=== PATIENT | male | born 1980 | race Caucasian/White ===

== ENCOUNTER 2017-03-17 07:18 | Emergency (ER) | payer BC ==
[2017-03-17] MEDS ORDERED: Sodium Chloride 0.9% 2.5 ML Syringe FLUSH PRN (07:22)
[2017-03-17] MEDS ORDERED: Aspirin 81 MG Tab.Chew PO ONE (07:22)
[2017-03-17] MEDS ORDERED: Sodium Chloride 0.9% 10 ML Syringe FLUSH PRN (07:22)
[2017-03-17] MEDS ORDERED: Sodium Chloride 0.9% 1,000 ML IV SCH (07:30)
--- NOTE | 2017-03-17 07:37 | EDM.PDOC ---
ED HPI GENERAL MEDICAL PROBLEM - General Stated Complaint: PALPITATIONS, STIFFNESS IN CHEST Time Seen by Provider: 03/17/17 07:19 Source of Information: Reports: Patient History Limitations: Reports: No Limitations - History of Present Illness INITIAL COMMENTS - FREE TEXT/NARRATIVE: HISTORY AND PHYSICAL: History of present illness: [36-year-old male with a past medical history of episode of atrial fibrillation years ago. At that time patient was cardioverted electrically and placed on atenolol. He has never had a recurrence of atrial fibrillation since that time. Patient has no known heart disease. He presents today complaining of "feeling weird. "Patient states he does not have chest pain. He does occasionally have palpitations including yesterday. Is not short of breath specifically has no exertional chest pain denies productive cough or fever no pleuritic chest pain. Patient states he's been very stressed out at work sometimes working 22 hour days at a strenuous job. Is also not sleeping well and drank alcohol before going to bed last night. Patient feels fatigued he did not get to bed until late and then didn't feel well on his way to work again this morning, so he came to the emergency department for evaluation. Patient states he does have a history of anxiety but he does not take any medication for this. He has never had a stress tach or cardiac catheterization. Blood pressure is elevated on arrival however he has no headache visual changes speech focal neurologic complaint chest pain shortness of breath, or any specific complaints Review of systems: As per history of present illness and below otherwise all systems reviewed and negative. Past medical history: As per history of present illness and as reviewed below otherwise noncontributory. Surgical history: As per history of present illness and as reviewed below otherwise noncontributory. Social history: No reported history of drug or alcohol abuse. Family history: As per history of present illness and as reviewed below otherwise noncontributory. Physical exam: HEENT: Atraumatic, normocephalic, pupils reactive, negative for conjunctival pallor or scleral icterus, mucous membranes moist, throat clear, neck supple, nontender, trachea midline. Lungs: Clear to auscultation, breath sounds equal bilaterally, chest nontender. Heart: S1S2, regular, negative for clicks, rubs, or JVD. Abdomen: Soft, nondistended, nontender. Negative for masses or hepatosplenomegaly. Negative for costovertebral tenderness. Pelvis: Stable nontender. Genitourinary: Deferred. Rectal: Deferred. Extremities: Atraumatic, negative for cords or calf pain. Neurovascular unremarkable. Neuro: Awake, alert, oriented. Cranial nerves II through XII unremarkable. Cerebellum unremarkable. Motor and sensory unremarkable throughout. Exam nonfocal. Diagnostics: [EKG with sinus arrhythmia at 62 normal axis no STEMI Chest x-ray with mild increased lung markings adjacent to right mediastinum right upper lobe area. Unclear if artifactual. Remainder of exam benign. CTA of the chest unremarkable with common that corresponding area to chest x- ray finding showed nothing pathologic and is deemed artifactual. Negative for PE Therapeutics: [] Impression: [Palpitations Fatigue Anxiety Pleurisy] Plan: [Signs and symptoms consistent with multifactorial etiology for patient's vague complaint of fatigue. He clearly has a contributory anxiety component as well as being overworked fatigued and having used alcohol last night even though he describes that it was not excessive . Discussed with patient possibility of paroxysmal of atrial fibrillation associated with his palpitations yesterday however symptoms were very mild with no respiratory symptoms. He's had no exertional pain at any time no evidence of acute coronary syndrome. Patient describes very mild pleurisy however chest x-ray was benign except for possible increased lung markings right upper lung however when evaluated with a CTA of the chest this finding turned out to be artifactual and the CTA results were obliquely negative. Patient initially with blood pressure approximately 180/120s , this improved with clonidine to 132/89 on reevaluation prior to discharge. Patient is well-appearing and asymptomatic on reevaluation. No further workup or treatment is indicated today and patient and significant other agree with outpatient follow-up. Call placed to patients patient carrier Dr. Coleman as a courtesy to discuss antihypertensive therapy and arrange outpatient follow-up. Strict return precautions given Definitive disposition and diagnosis as appropriate pending reevaluation and review of above. - Related Data Allergies Allergy/AdvReac Type Severity Reaction Status Date / Time No Known Allergies Allergy Verified 03/17/17 07:27 Home Meds: Home Meds Aspirin 325 mg PO DAILY 03/23/14 [History] Esomeprazole [NexIUM] 0 mg PO DAILY 03/23/14 [History] Fish Oil/[place]-3 Fatty Acids [Fish Oil] 1 gm PO DAILY 05/07/15 [History] Garlic 1 tab PO DAILY 05/07/15 [History] Multivitamin [Multivitamins] 1 cap PO DAILY 05/07/15 [History] Diltiazem HCl [Diltiazem 24Hr ER] 240 mg PO DAILY 03/17/17 [History] Past Medical History HEENT History: Reports: None Cardiovascular History: Reports: Afib Respiratory History: Reports: None Gastrointestinal History: Reports: None Genitourinary History: Reports: None Neurological History: Reports: None Psychiatric History: Reports: None Endocrine/Metabolic History: Reports: None Dermatologic History: Reports: None - Infectious Disease History Infectious Disease History: Reports: Chicken Pox - Past Surgical History Other Musculoskeletal Surgeries/Procedures:: Carpal tunnel surgery Social & Family History - Family History Family Medical History: Noncontributory - Tobacco Use Smoking Status *Q: Current Every Day Smoker Years of Tobacco use: 20 Packs/Tins Daily: 1 - Caffeine Use Caffeine Use: Reports: None - Alcohol Use Days Per Week of Alcohol Use: 2 Number of Drinks Per Day: 3 Total Drinks Per Week: 6 - Recreational Drug Use Recreational Drug Use: No Drug Use in Last 12 Months: No ED ROS GENERAL - Review of Systems Review Of Systems: See Below (History of present illness) ED EXAM, GENERAL - Physical Exam Exam: See Below (History of present illness) Course - Vital Signs Last Recorded V/S: Last Vital Signs Temp 36.4 C 03/17/17 07:27 Pulse 76 03/17/17 07:27 Resp 18 03/17/17 07:27 BP 192/131 H 03/17/17 07:43 Pulse Ox 97 03/17/17 07:27 - Orders/Labs/Meds Orders: Active Orders 24 hr Category Date Time Status EKG 12 Lead [EKG Documentation Completion] [RC] STAT Care 03/17/17 07:22 Active CTA Chest W WO Contrast [Ang Chest] [CT] Stat Exams 03/17/17 08:29 Taken Chest 1V Frontal [CR] Stat Exams 03/17/17 07:22 Taken Sodium Chloride 0.9% [Normal Saline] 1,000 ml Med 03/17/17 07:30 Active IV ASDIRECTED Sodium Chloride 0.9% [Saline Flush] Med 03/17/17 07:22 Active 10 ml FLUSH ASDIRECTED PRN Sodium Chloride 0.9% [Saline Flush] Med 03/17/17 07:22 Active 2.5 ml FLUSH ASDIRECTED PRN Peripheral IV Insertion Adult [OM.PC] Stat Oth 03/17/17 07:22 Ordered Medication Orders Sodium Chloride (Normal Saline) 1,000 mls @ 125 mls/hr IV ASDIRECTED SYLWIA Last Admin: 03/17/17 07:41 Dose: 125 mls/hr Sodium Chloride (Saline Flush) 10 ml FLUSH ASDIRECTED PRN PRN Reason: Keep Vein Open Sodium Chloride (Saline Flush) 2.5 ml FLUSH ASDIRECTED PRN PRN Reason: Keep Vein Open Labs: Laboratory Tests 03/17/17 03/17/17 03/17/17 Range/Units 07:23 07:23 07:23 WBC 6.87 (4.0-11.0) K/uL RBC 5.58 (4.50-5.90) M/uL Hgb 15.7 (13.0-17.0) g/dL Hct 46.8 (38.0-50.0) % MCV 83.9 (80.0-98.0) fL MCH 28.1 (27.0-32.0) pg MCHC 33.5 (31.0-37.0) g/dL RDW Std Deviation 42.8 (28.0-62.0) fl RDW Coeff of [place] 14 (11.0-15.0) % Plt Count 176 (150-400) K/uL MPV 10.40 (7.40-12.00) fL Neut % (Auto) 57.4 (48.0-80.0) % Lymph % (Auto) 30.9 (16.0-40.0) % [place] % (Auto) 7.9 (0.0-15.0) % Eos % (Auto) 3.5 (0.0-7.0) % Baso % (Auto) 0.3 (0.0-1.5) % Neut # (Auto) 4.0 (1.4-5.7) K/uL Lymph # (Auto) 2.1 (0.6-2.4) K/uL [place] # (Auto) 0.5 (0.0-0.8) K/uL Eos # (Auto) 0.2 (0.0-0.7) K/uL Baso # (Auto) 0.0 (0.0-0.1) K/uL Nucleated RBC % 0.0 /100WBC Nucleated RBCs # 0 K/uL Sodium 140 (136-146) mmol/L Potassium 4.0 (3.5-5.1) mmol/L Chloride 106 (98-110) mmol/L Carbon Dioxide 25 (21-31) mmol/L BUN 20 (6.0-23.0) mg/dL Creatinine 1.2 (0.6-1.5) mg/dL Est Cr Clr Drug Dosing 91.61 mL/min Estimated GFR (MDRD) > 60.0 ml/min Glucose 131 H (60-110) mg/dL Calcium 9.3 (8.8-10.8) mg/dL Total Bilirubin 0.7 (0.1-1.5) mg/dL AST 23 (5-40) IU/L ALT 27 (8-54) IU/L Alkaline Phosphatase 94 (40-150) Troponin I < 0.10 (0.0-0.29) NG/ML Total Protein 7.3 (6.0-8.0) g/dL Albumin 4.4 (3.5-5.0) g/dL Globulin 2.9 (2.0-3.5) g/dL Albumin/Globulin Ratio 1.5 (1.3-2.8) Meds: Medications Generic Name Dose Route Start Last Admin Trade Name Freq PRN Reason Stop Dose Admin Sodium Chloride 1,000 mls @ 125 mls/hr 03/17/17 07:30 03/17/17 07:41 Normal Saline IV 125 mls/hr ASDIRECTED SYLWIA Administration Sodium Chloride 10 ml 03/17/17 07:22 Saline Flush FLUSH ASDIRECTED PRN Keep Vein Open Sodium Chloride 2.5 ml 03/17/17 07:22 Saline Flush FLUSH ASDIRECTED PRN Keep Vein Open Discontinued Medications Generic Name Dose Route Start Last Admin Trade Name Freq PRN Reason Stop Dose Admin Aspirin 324 mg 03/17/17 07:22 03/17/17 07:44 Aspirin PO 03/17/17 07:23 Not Given ONETIME ONE Clonidine HCl 0.1 mg 03/17/17 07:39 03/17/17 07:43 Catapres PO 03/17/17 07:40 0.1 mg ONETIME ONE Administration Iopamidol 50 ml 03/17/17 09:05 03/17/17 09:08 Isovue Multipack-370 (76%) IVPUSH 03/17/17 09:06 50 ml ONETIME STA Administration Departure - Departure Time of Disposition: 09:41 Disposition: Home, Self-Care 01 Condition: Good Clinical Impression: Palpitations, Fatigue, Anxiety about health, Uncontrolled hypertension, Pleurisy - Discharge Information Instructions: Hypertension, [id number] Referrals: PCP,None [Primary Care Provider] - Additional Instructions: It appears that your symptoms today are result of a combination of things. You describe your under a lot of stress at work. 22 hour work days are not sustainable for your long-term health and mental well-being. It is understandable that you feel very stressed out. It's important that you rest well and drink plenty of fluids not only in general during your daily life, but this is even more important when you are under stress or working harder than usual. Avoid alcohol prior to sleep as this affects the quality of your sleep. Be sure to go to bed early and get plenty of rest and consider adjusting your work schedule to something more reasonable and sustainable. There is no evidence of an emergency with your heart today but given that you have a family history of some heart disease with your father, is appropriate for you to follow -up for a stress test as an outpatient call your patient carrier's office to arrange a stress test as soon as possible and return immediately for new severe or worsening symptoms. Your blood pressure was definitely uncontrolled today and the highest he was 192/131. This improved with treatment and was 132/89 upon your discharge. I've given you a prescription for 1 week of losartan daily. Follow-up with your Dr. and/or your patient carrier in the next one to 2 days, for reevaluation of your blood pressure and to discuss arranging an outpatient stress test as well as further workup or treatment as indicated. - My Orders Last 24 Hours: My Active Orders 03/17/17 07:22 EKG 12 Lead [EKG Documentation Completion] [RC] STAT Chest 1V Frontal [CR] Stat Sodium Chloride 0.9% [Saline Flush] 10 ml FLUSH ASDIRECTED PRN Sodium Chloride 0.9% [Saline Flush] 2.5 ml FLUSH ASDIRECTED PRN Peripheral IV Insertion Adult [OM.PC] Stat 03/17/17 07:30 Sodium Chloride 0.9% [Normal Saline] 1,000 ml IV ASDIRECTED 03/17/17 08:29 CTA Chest W WO Contrast [Ang Chest] [CT] Stat - Assessment/Plan Last 24 Hours: My Active Orders 03/17/17 07:22 EKG 12 Lead [EKG Documentation Completion] [RC] STAT Chest 1V Frontal [CR] Stat Sodium Chloride 0.9% [Saline Flush] 10 ml FLUSH ASDIRECTED PRN Sodium Chloride 0.9% [Saline Flush] 2.5 ml FLUSH ASDIRECTED PRN Peripheral IV Insertion Adult [OM.PC] Stat 03/17/17 07:30 Sodium Chloride 0.9% [Normal Saline] 1,000 ml IV ASDIRECTED 03/17/17 08:29 CTA Chest W WO Contrast [Ang Chest] [CT] Stat
[2017-03-17] MEDS ORDERED: cloNIDine 0.1 MG Tab PO ONE (07:39)
[2017-03-17 08:05] LABS: CHLORIDE,CL 106 mmol/L (98-110); SODIUM,NA 140 mmol/L (136-146)
[2017-03-17] MEDS ORDERED: Iopamidol 755 MG/ML 500 ML Multipack Bottle IVPUSH STA (09:05)
[2017-03-17 10:13] VITALS: BP 143/87
--- NOTE | 2017-03-17 18:39 | CR ---
EXAM DATE: 03/17/17 PATIENT'S AGE: 36 Patient: DEMARCO TAMAYO Facility: [place], [place] Site . Site : 1980 Study: XRay Chest [id number]/28/2017 8:06:36 AM Ordering Physician: Rainer Hidalgo Final Report: INDICATION: Palpitations. Comparison: Chest radiograph March 23, 2014. Technique: Portable AP chest. Findings: Normal size cardiac silhouette. Clear lung tello without evidence of acute pneumonic infiltrates or CHF. No pneumothorax or pleural effusion. Increased bronchovascular markings adjacent to the mediastinum in the region of the right upper lobe that is relatively new when compared to March 23, 2014; if clinically needed, suggest obtaining a CT of the chest without intravenous contrast. Impression: 1. Increased vascular markings right upper lung adjacent to the mediastinum; suggest obtaining a chest CT for further assessment. 2. No other abnormalities are identified. Dictated by Bret Vieira MD @ Mar 17 2017 8:07AM (Electronic Signature) Report Signed by Proxy. DONNA
--- NOTE | 2017-03-17 18:41 | CT ---
EXAM DATE: 03/17/17 PATIENT'S AGE: 36 Patient: DEMARCO TAMAYO Facility: [place], [place] Site . Site : 1980 Study: CT Chest Angio [id number]/28/2017 9:10:40 AM Ordering Physician: Rainer Hidalgo Final Report: INDICATION: Abnormal chest x-ray with increased bronchovascular markings right upper lobe; further assessment. Comparison: Chest radiograph March 23, 2014 and March 17, 2017. Technique: CT chest with intravenous contrast; coronal and sagittal reformats. Findings: No CT evidence of acute or chronic pulmonary thromboemboli. No abnormal mediastinal or hilar lymphadenopathy. No endobronchial pathology. No evidence of pleural effusion or chest wall pathology. No acute pneumonic infiltrates. Normal size cardiac silhouette without any evidence of pericardial effusion. No pneumothorax. Limited CT through the upper abdomen is unremarkable. Impression: 1. No CT evidence of pulmonary thromboembolism. 2. No abnormalities identified on this chest CT. 3. The findings noted on the portable chest radiograph is probably an artifact of the examination. Please note that all CT scans at this facility use dose modulation, iterative reconstruction, and/or weight-based dosing when appropriate to reduce radiation dose to as low as reasonably achievable. Dictated by Bret Vieira MD @ Mar 17 2017 9:11AM (Electronic Signature) Report Signed by Proxy. [facility] Luis
== END 2017-03-17 10:05 | disposition home or self-care (01) ==
LOC: MW.ED 07:18
DX: F41.9 Anxiety disorder, unspecified (principal); R09.1 Pleurisy; R53.83 Other fatigue; I10 Essential (primary) hypertension; I48.91 Unspecified atrial fibrillation; F17.210 Nicotine dependence, cigarettes, uncomplicated; Z79.82 Long term (current) use of aspirin; Z79.899 Other long term (current) drug therapy
CPT/HCPCS: 36415; 71010; 71275; 80053; 84484; 85025; 93005; 96360; 96361; 99285; A9270; J7040; Q9967; 99283

== ENCOUNTER 2017-05-23 18:20 | Observation (INO) | payer BC ==
[2017-05-23 19:22] LABS: CHLORIDE,CL 108 mmol/L (98-110); SODIUM,NA 141 mmol/L (136-146)
--- NOTE | 2017-05-23 19:46 | EDM.PDOC ---
ED HPI GENERAL MEDICAL PROBLEM - General Chief Complaint: Chest Pain Stated Complaint: PT HAS PAIN ON RT SIDE OF BODY Time Seen by Provider: 05/23/17 18:34 Source of Information: Reports: Patient History Limitations: Reports: No Limitations - History of Present Illness INITIAL COMMENTS - FREE TEXT/NARRATIVE: Presents with a complaint of left chest pain. He states that really the pain has been off-and-on for the last month and a half. It is located about 4 cm below the nipple in the left fifth intercostal space. It does not radiate and he characterizes it as a twinge. He denies diaphoresis, nausea, shortness of breath or fever. He states that the chest pain really did not bring him in. It was a lack of energy, feeling drug out, exhaustion, palpitations, his heart skipping beats and his fear due to his heart "bouncing around". Every night when he goes to bed he is afraid that he will not wake up in the morning. About 12 years ago he had an occurrence of atrial fibrillation with palpitations that was converted by cardioversion. He was on medications for a while but stopped them for quite a few years because he was asymptomatic. 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 Dr. Coleman told him everything was fine and he did not need to be seen for a year. He states that he drinks only an occasional caffeine drink and small amounts of alcohol intermittently. He denies recreational or [id number] drug use. He has not been otherwise ill with upper respiratory or other problems and has been going to work on a regular basis. Of note he has a history of depressive disease, suicide attempt with benzodiazepine overdose, PVCs with palpitations, anxiety about health, hypertension. Smokeless tobacco x 20 years. Chest Pain Score (Numeric/FACES): 3 - Related Data Allergies Allergy/AdvReac Type Severity Reaction Status Date / Time No Known Allergies Allergy Verified 03/17/17 07:27 Home Meds: Home Meds Aspirin 325 mg PO DAILY 03/23/14 [History] Esomeprazole [NexIUM] 0 mg PO DAILY 03/23/14 [History] Fish Oil/[place]-3 Fatty Acids [Fish Oil] 1 gm PO DAILY 05/07/15 [History] Garlic 1 tab PO DAILY 05/07/15 [History] Multivitamin [Multivitamins] 1 cap PO DAILY 05/07/15 [History] Diltiazem HCl [Diltiazem 24Hr ER] 240 mg PO DAILY 03/17/17 [History] Valsartan 80 mg PO DAILY #10 tablet 03/17/17 [Rx] Past Medical History - Past Health History Medical/Surgical History: Denies Medical/Surgical History HEENT History: Reports: None Cardiovascular History: Reports: Afib Respiratory History: Reports: None Gastrointestinal History: Reports: None Genitourinary History: Reports: None Neurological History: Reports: None Psychiatric History: Reports: None Endocrine/Metabolic History: Reports: None Dermatologic History: Reports: None - Infectious Disease History Infectious Disease History: Reports: Chicken Pox - Past Surgical History Other Musculoskeletal Surgeries/Procedures:: Carpal tunnel surgery Social & Family History - Family History Family Medical History: Noncontributory - Tobacco Use Smoking Status *Q: Never Smoker Years of Tobacco use: 20 Packs/Tins Daily: 1 - Caffeine Use Caffeine Use: Reports: Coffee, Soda - Alcohol Use Days Per Week of Alcohol Use: 2 Number of Drinks Per Day: 3 Total Drinks Per Week: 6 - Recreational Drug Use Recreational Drug Use: No Drug Use in Last 12 Months: No ED ROS GENERAL - Review of Systems Review Of Systems: ROS reveals no pertinent complaints other than HPI. ED EXAM, GENERAL - Physical Exam Exam: See Below Exam Limited By: No Limitations General Appearance: Alert, No Apparent Distress Ears: Normal External Exam Nose: Normal Inspection Throat/Mouth: Normal Inspection Head: Atraumatic, Normocephalic Neck: Normal Inspection Respiratory/Chest: No Respiratory Distress, Lungs Clear, Normal Breath Sounds, Chest Non-Tender Cardiovascular: Normal Peripheral Pulses, No Edema, No Murmur, Other (skipped beats) GI/Abdominal: Normal Bowel Sounds, Soft Back Exam: Normal Inspection Extremities: Normal Inspection Neurological: Alert, Oriented Psychiatric: Normal Affect, Normal Mood Skin Exam: Warm, Dry, Intact, Normal Color, No Rash Lymphatic: No Adenopathy Course - Vital Signs Last Recorded V/S: Last Vital Signs Temp 36.7 C 05/23/17 18:37 Pulse 85 05/23/17 18:37 Resp 16 05/23/17 18:37 BP 119/65 05/23/17 18:37 Pulse Ox 98 05/23/17 18:37 - Orders/Labs/Meds Orders: Active Orders 24 hr Category Date Time Status EKG 12 Lead [EKG Documentation Completion] [RC] STAT Care 05/23/17 18:38 Active Chest 2V [CR] Stat Exams 05/23/17 18:49 Taken DRUG SCREEN, URINE [URCHEM] Stat Lab 05/23/17 19:56 Uncollected Labs: Laboratory Tests 05/23/17 05/23/17 05/23/17 Range/Units 18:55 18:55 18:55 WBC 7.23 (4.0-11.0) K/uL RBC 5.18 (4.50-5.90) M/uL Hgb 14.7 (13.0-17.0) g/dL Hct 43.6 (38.0-50.0) % MCV 84.2 (80.0-98.0) fL MCH 28.4 (27.0-32.0) pg MCHC 33.7 (31.0-37.0) g/dL RDW Std Deviation 42.7 (28.0-62.0) fl RDW Coeff of [place] 14 (11.0-15.0) % Plt Count 189 (150-400) K/uL MPV 11.30 (7.40-12.00) fL Neut % (Auto) 65.3 (48.0-80.0) % Lymph % (Auto) 25.2 (16.0-40.0) % [place] % (Auto) 7.5 (0.0-15.0) % Eos % (Auto) 1.7 (0.0-7.0) % Baso % (Auto) 0.3 (0.0-1.5) % Neut # (Auto) 4.7 (1.4-5.7) K/uL Lymph # (Auto) 1.8 (0.6-2.4) K/uL [place] # (Auto) 0.5 (0.0-0.8) K/uL Eos # (Auto) 0.1 (0.0-0.7) K/uL Baso # (Auto) 0.0 (0.0-0.1) K/uL Nucleated RBC % 0.0 /100WBC Nucleated RBCs # 0 K/uL Sodium 141 (136-146) mmol/L Potassium 3.7 (3.5-5.1) mmol/L Chloride 108 (98-110) mmol/L Carbon Dioxide 24 (21-31) mmol/L BUN 21 (6.0-23.0) mg/dL Creatinine 1.0 (0.6-1.5) mg/dL Est Cr Clr Drug Dosing 109.93 mL/min Estimated GFR (MDRD) > 60.0 ml/min Glucose 120 H (60-110) mg/dL Calcium 9.1 (8.8-10.8) mg/dL Total Bilirubin 0.5 (0.1-1.5) mg/dL AST 20 (5-40) IU/L ALT 26 (8-54) IU/L Alkaline Phosphatase 80 (40-150) Troponin I < 0.10 (0.0-0.29) NG/ML Total Protein 7.3 (6.0-8.0) g/dL Albumin 4.2 (3.5-5.0) g/dL Globulin 3.1 (2.0-3.5) g/dL Albumin/Globulin Ratio 1.4 (1.3-2.8) Departure - Departure Time of Disposition: 20:26 Disposition: Refer to Observation Condition: Good Clinical Impression: Palpitations Referrals: PCP,None [Primary Care Provider] - Forms: ED Department Discharge - My Orders Last 24 Hours: My Active Orders 05/23/17 18:49 Chest 2V [CR] Stat 05/23/17 19:56 DRUG SCREEN, URINE [URCHEM] Stat - Assessment/Plan Last 24 Hours: My Active Orders 05/23/17 18:49 Chest 2V [CR] Stat 05/23/17 19:56 DRUG SCREEN, URINE [URCHEM] Stat
--- NOTE | 2017-05-23 20:53 | PCM.HP ---
H&P History of Present Illness - History of Present Illness Initial Comments - Free Text/Narative: 36 yo male with pmh of arrhythmia who presents with palpiations. He reports history of atrial fibrillation which he was cardioverted over ten years ago. He has since been on diltiazem and losartan and follows Dr. Bassett. He reports over past month having palpitation which keep him awake at night. Over the past several days his palpitations have increased and he feels worn down. EKG in ED reports sinus rhythm with frequent PVCs. He reports some chest discomfort on the left side. He denies any shortness of breath. Chest Pain Score (Numeric/FACES): 3 - Related Data Allergies/Adverse Reactions: Allergies Allergy/AdvReac Type Severity Reaction Status Date / Time No Known Allergies Allergy Verified 03/17/17 07:27 Home Medications: Home Meds Aspirin 650 mg PO DAILY 03/23/14 [History] Fish Oil/[place]-3 Fatty Acids [Fish Oil] 1,200 mg PO DAILY 05/07/15 [History] Garlic 1 tab PO DAILY 05/07/15 [History] Diltiazem HCl [Diltiazem 24Hr ER] 360 mg PO DAILY 03/17/17 [History] Esomeprazole Magnesium [Nexium] 20 mg PO DAILY 05/24/17 [History] Glucosamine/D3/Boswellia Samia [Osteo Bi-Flex Caplet] 2 tab PO DAILY 05/24/17 [ History] Multivits-Minerals/FA/Lycopene [One-A-Day Men's Tablet] 1 tab PO DAILY 05/24/17 [History] Valsartan 80 mg PO DAILY 05/24/17 [History] Past Medical History - Past Health History Medical/Surgical History: Denies Medical/Surgical History HEENT History: Reports: None Cardiovascular History: Reports: Afib Respiratory History: Reports: None Gastrointestinal History: Reports: None Genitourinary History: Reports: None Neurological History: Reports: None Psychiatric History: Reports: None Endocrine/Metabolic History: Reports: None Dermatologic History: Reports: None - Infectious Disease History Infectious Disease History: Reports: Chicken Pox - Past Surgical History Other Musculoskeletal Surgeries/Procedures:: Carpal tunnel surgery Social & Family History - Family History Family Medical History: Noncontributory - Tobacco Use Smoking Status *Q: Never Smoker Years of Tobacco use: 20 Packs/Tins Daily: 1 - Caffeine Use Caffeine Use: Reports: Coffee, Soda - Alcohol Use Days Per Week of Alcohol Use: 2 Number of Drinks Per Day: 3 Total Drinks Per Week: 6 - Recreational Drug Use Recreational Drug Use: No Drug Use in Last 12 Months: No H&P Review of Systems - Review of Systems: Review Of Systems: ROS reveals no pertinent complaints other than HPI. Exam - Exam Exam: See Below - Vital Signs Vital Signs: Last Vital Signs Temp 36.7 C 05/23/17 18:37 Pulse 85 05/23/17 18:37 Resp 16 05/23/17 18:37 BP 119/65 05/23/17 18:37 Pulse Ox 98 05/23/17 18:37 Weight: 129.274 kg - Exam General: Alert, Oriented, 4 Lungs: Clear to Auscultation, Normal Respiratory Effort Cardiovascular: Regular Rate, Irregular Rhythm GI/Abdominal Exam: Soft, Non-Tender, No Distention Extremities: Normal Inspection, Non-Tender, No Pedal Edema Skin: Warm, Dry, Intact - Patient Data Result Diagrams: 05/23/17 18:55 05/23/17 18:55 *Q Meaningful Use (ADM) - VTE *Q VTE Criteria *Q: - Stroke *Q Stroke Criteria *Q: - AMI *Q AMI Criteria *Q: Problem List Initiated/Reviewed/Updated: Yes Orders Last 24hrs: Active Orders 24 hr Category Date Time Status Antiembolic Devices [RC] PER UNIT ROUTINE Care 05/23/17 20:49 Ordered Oxygen Therapy [RC] PRN Care 05/23/17 20:49 Ordered Up ad Sabiha [RC] ASDIRECTED Care 05/23/17 20:49 Ordered VTE/DVT Education [RC] PER UNIT ROUTINE Care 05/23/17 20:49 Ordered Vital Signs [RC] Q4H Care 05/23/17 20:49 Ordered Regular Diet [DIET] Diet 05/23/17 Breakfast Ordered Echo 2D wo Cont [US] Routine Exams 05/23/17 20:50 Ordered MAGNESIUM [CHEM] Routine Lab 05/23/17 20:47 Ordered TROPONIN I [CHEM] Q6H Lab 05/24/17 01:00 Ordered TROPONIN I [CHEM] Q6H Lab 05/24/17 07:00 Ordered Aspirin Med 05/24/17 09:00 Ordered 325 mg PO DAILY Diltiazem HCl Med 05/24/17 09:00 Ordered 240 mg PO DAILY Valsartan [Diovan] Med 05/24/17 09:00 Ordered 80 mg PO DAILY Sequential Compression Device [OM.PC] Per Unit Routine Oth 05/23/17 20:49 Ordered Resuscitation Status Routine Resus Stat 05/23/17 20:49 Ordered Medication Orders Aspirin (Aspirin) 325 mg PO DAILY SYLWIA Non-Formulary Medication (Diltiazem Hcl) 240 mg PO DAILY SYLWIA Valsartan (Diovan) 80 mg PO DAILY SYLWIA Assessment/Plan Comment:: 36 yo male admitted for palpitations. He was monitored overnight. Dr. Gallardo was consulted and wrote prescription to increase diltiazem to 360mg daily. He was discharged to have follow up with Dr. Coleman.
[2017-05-23] MEDS ORDERED: Pneumococcal Polyvalent-23 Vaccine 0.5 ML SDV IM ONE (22:03)
[2017-05-23] MEDS ORDERED: FLU Vacc QS 2017-18 (36mos UP)/PF 60 MCG/0.5 ML Syringe IM ONE (22:15)
[2017-05-24] MEDS ORDERED: FLU Vacc QS 2017-18 (36mos UP)/PF 60 MCG/0.5 ML Syringe IM ONE (08:00)
[2017-05-24] MEDS ORDERED: Diltiazem 120 MG Cap.CD PO SCH (09:00)
[2017-05-24] MEDS ORDERED: Aspirin 325 MG Tab PO SCH (09:00)
[2017-05-24] MEDS ORDERED: Omeprazole 20 MG Cap.CR PO SCH (09:45)
--- NOTE | 2017-05-24 10:55 | CR ---
EXAM DATE: 05/23/17 PATIENT'S AGE: 36 Patient: DEMARCO TAMAYO Facility: [place], [place] Site . Site : 1980 Study: XRay Chest [id number] 7:33:55 PM Ordering Physician: Doctor Damian Final Report: INDICATION: chest pain TECHNIQUE: Chest radiograph 2 views COMPARISON: 03/17/17 FINDINGS: Cardiovascular and mediastinum: The cardiac silhouette is normal in appearance and size. Mediastinum is within normal limits. Lungs and pleural spaces: Both lungs are unremarkable in appearance. No sign of pleural effusion. No pneumothorax is seen. Bones and soft tissues: No significant findings. IMPRESSION: 1. No acute cardiopulmonary disease seen. Dictated by: Shin Davis MD @ 05/23/2017 19:49:56 (Electronic Signature) Report Signed by Proxy. [facility] Luis
[2017-05-24 17:35] VITALS: BP 135/72
--- NOTE | 2017-05-25 15:16 | CONS ---
DATE OF CONSULTATION: 05/24/2017 DATE OF : 1980 PRIMARY CARE PHYSICIAN: None PCP REASON FOR CONSULTATION: Palpitation. HISTORY OF PRESENT ILLNESS: This is a 36-year-old male with history of atrial fibrillation diagnosed in 2004. At that time, he underwent direct current cardioversion. He converted to sinus rhythm, and he is here in the emergency room due to chest pain and palpitation. His medications include aspirin 325, as well as diltiazem 240 once a day, valsartan 80 mg once a day. He is not sure that he was diagnosed with hypertension or not, but he is also on losartan as well. Denies history of diabetes, high cholesterol, heart failure, or heart attack. Never had a stress test done but he had walking EKG when he was in [place]. He stated that his symptom of palpitation and chest pain has been going on for 1 1/2 months. His pain, he describes the pain as piercing pain, lasting for 2-3 seconds, on the left-sided chest wall below the nipple area. It comes and goes very quickly and gone away. Sometimes when he takes a deep breath, it hurts. Sometimes a certain position or movement also hurts more. 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 However, before he came into the hospital, he usually has a pain and rated the pain as like milder, like 1 from 10 pain scale. This happened almost a month and a half ago so far. He also experienced the palpitation that he describes as a double beat and also it paused between the beats and sometimes he feels lightheaded but no shortness of breath. No leg swelling. No orthopnea. No PND. He has seen Dr. Coleman a few times, 3 to 4 times and he is scheduled to see Dr. Coleman on June 08, 2017. Blood pressure was elevated when he was in the hospital, 150/62, and currently he has been ruled out for ACS. Troponin was negative. An EKG showed sinus rhythm, heart rate of 83 with an unifocal and frequent PVCs, ND interval of 52 and QTc 435. PAST MEDICAL HISTORY: Include hypertension, history of atrial fibrillation in the past and underwent a direct current cardioversion, morbid obesity. Denied history of stroke, heart failure, diabetes. FAMILY HISTORY: Noncontributory. SOCIAL HISTORY: He is a former smoker, one pack per day for 20 years. He drinks almost every day and no recreational drug use. ALLERGIES: No known drug allergies. PHYSICAL EXAMINATION: VITAL SIGNS: Blood pressure was elevated 152/65, heart rate of 53, temperature 36.7, O2 saturation 99 on room air. HEENT: No pallor. No jaundice. NECK: No JVD. HEART: Normal S1, S2. No murmur. Extra heart beats. LUNGS: Clear. No wheezing. No crackles. ABDOMEN: Soft, nontender. Bowel sounds are present. No hepatosplenomegaly. EXTREMITIES: Legs, no edema. LABORATORY INVESTIGATIONS: CBC showed WBC 7, hematocrit of 43, and platelet of 189. Sodium 141, potassium 3.7, chloride 108, bicarb 24, BUN 21, creatinine 1.0. GFR more than 60. Glucose 120. Troponin is less than 0.1 x3. Urine drug is negative. EKG shows sinus rhythm with frequent PVCs. ASSESSMENT AND PLAN: A 36-year-old male with history of hypertension, history of atrial fibrillation in the past with frequent PVCs with atypical chest pain. He is going to be discharged from the hospital. He is already scheduled to see Dr. Coleman as an outpatient. I will increase the diltiazem to 360 mg p.o. once a day. He may well need ischemic workup, either CT coronary angiogram versus stress test but this will be deferred to his own cable former Dr. Coleman. Also, he will probably need a Holter monitor for 48 hours to see the PVC burden, but this also again will be deferred to Dr. Coleman, his own cable former. TEENA / MOHAN /[id number]
--- NOTE | 2017-05-26 15:01 | ECHO ---
EXAM DATE: 05/23/17 PATIENT'S AGE: 36 The echocardiogram report can be seen in this patient's EMR (Electronic Medical Record) in the Reports section. The report has also been scanned into PACs. DONNA
== END 2017-05-24 17:17 | disposition home or self-care (01) ==
LOC: MW.ED 18:20 → MW.MS 20:28 → UNDOADMOB 20:31
PROVIDERS: ADMIT Internal Medicine; ATTEND Internal Medicine
DX: R00.2 Palpitations (principal); I10 Essential (primary) hypertension; I48.91 Unspecified atrial fibrillation; Z79.82 Long term (current) use of aspirin; Z79.899 Other long term (current) drug therapy; Z98.890 Other specified postprocedural states
CPT/HCPCS: 36415; 71020; 80053; 80305; 83735; 84484; 85025; 93005; 93306; 99285; A9270; G0378; 90686; 99283

== ENCOUNTER 2017-08-22 21:24 | Emergency (ER) | payer BC ==
[2017-08-22] MEDS ORDERED: Famotidine 20 MG/2 ML SDV IVPUSH ONE (22:33)
[2017-08-22] MEDS ORDERED: Aspirin 81 MG Tab.Chew PO ONE (22:33)
[2017-08-22] MEDS ORDERED: Ketorolac 30 MG/ML SDV IVPUSH ONE (22:33)
[2017-08-22] MEDS ORDERED: Alum Hydrox/Mag Hydrox/Simeth 15 ML, Metoclopramide 5 MG, Lidocaine 2% 5 ML PO ONE ×3 (22:33)
[2017-08-22] MEDS ORDERED: Sodium Chloride 0.9% 2.5 ML Syringe FLUSH PRN (22:33)
[2017-08-22] MEDS ORDERED: Sodium Chloride 0.9% 10 ML Syringe FLUSH PRN (22:33)
[2017-08-22] MEDS ORDERED: Nitroglycerin 2% Oint 1 GM UD Packet TOP ONE (22:33)
--- NOTE | 2017-08-22 23:06 | EDM.PDOC ---
ED HPI GENERAL MEDICAL PROBLEM - General Chief Complaint: Cardiovascular Problem Stated Complaint: SHORTNESS OF BREATH Time Seen by Provider: 08/22/17 22:45 Source of Information: Reports: Patient History Limitations: Reports: No Limitations - History of Present Illness INITIAL COMMENTS - FREE TEXT/NARRATIVE: History of present illness: [36-year-old male comes in status post ablation with complaints of chest pain, dizziness, and inability to catch breath.] Review of systems: As per history of present illness and below otherwise all systems reviewed and negative. Past medical history: As per history of present illness and as reviewed below otherwise noncontributory. Surgical history: As per history of present illness and as reviewed below otherwise noncontributory. Social history: No reported history of drug or alcohol abuse. Family history: As per history of present illness and as reviewed below otherwise noncontributory. Physical exam: HEENT: Atraumatic, normocephalic, pupils reactive, negative for conjunctival pallor or scleral icterus, mucous membranes moist, throat clear, neck supple, nontender, trachea midline. Lungs: Clear to auscultation, breath sounds equal bilaterally, chest nontender. Heart: S1S2, regular, negative for clicks, rubs, or JVD. Abdomen: Soft, nondistended, nontender. Negative for masses or hepatosplenomegaly. Negative for costovertebral tenderness. Pelvis: Stable nontender. Genitourinary: Deferred. Rectal: Deferred. Extremities: Atraumatic, negative for cords or calf pain. Neurovascular unremarkable. Neuro: Awake, alert, oriented. Cranial nerves II through XII unremarkable. Cerebellum unremarkable. Motor and sensory unremarkable throughout. Exam nonfocal. Global assessment is benign save subjective complaint as noted in history of present illness Discussed at length patient's history with him in regards to his recent ablation and his risk of reperfusion ectopy as well as discomfort. Impressed upon patient the need to follow-up with his funeral pre arrangement specialist tomorrow and explain to him that he was seen in the ED and that all exams were negative. 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 chest pain Pain Score (Numeric/FACES): 1 - Related Data Allergies Allergy/AdvReac Type Severity Reaction Status Date / Time No Known Allergies Allergy Verified 08/22/17 21:34 Home Meds: Home Meds Aspirin 650 mg PO DAILY 03/23/14 [History] Fish Oil/[place]-3 Fatty Acids [Fish Oil] 1,200 mg PO DAILY 05/07/15 [History] Garlic 1 tab PO DAILY 05/07/15 [History] Diltiazem HCl [Diltiazem 24Hr ER] 360 mg PO DAILY 03/17/17 [History] Esomeprazole Magnesium [Nexium] 20 mg PO DAILY 05/24/17 [History] Glucosamine/D3/Boswellia Samia [Osteo Bi-Flex Caplet] 2 tab PO DAILY 05/24/17 [ History] Multivits-Minerals/FA/Lycopene [One-A-Day Men's Tablet] 1 tab PO DAILY 05/24/17 [History] Valsartan 80 mg PO DAILY 05/24/17 [History] Past Medical History - Past Health History Medical/Surgical History: Denies Medical/Surgical History HEENT History: Reports: None Cardiovascular History: Reports: Afib Respiratory History: Reports: None Gastrointestinal History: Reports: None Genitourinary History: Reports: None Neurological History: Reports: None Psychiatric History: Reports: None Endocrine/Metabolic History: Reports: None Dermatologic History: Reports: None - Infectious Disease History Infectious Disease History: Reports: Chicken Pox - Past Surgical History Other Musculoskeletal Surgeries/Procedures:: Carpal tunnel surgery Social & Family History - Family History Family Medical History: Noncontributory - Tobacco Use Smoking Status *Q: Never Smoker Years of Tobacco use: 20 Packs/Tins Daily: 1 Used Tobacco, but Quit: Yes Month Tobacco Last Used: 20 years ago - Caffeine Use Caffeine Use: Reports: Coffee, Soda - Alcohol Use Days Per Week of Alcohol Use: 2 Number of Drinks Per Day: 3 Total Drinks Per Week: 6 - Recreational Drug Use Recreational Drug Use: No Drug Use in Last 12 Months: No ED ROS GENERAL - Review of Systems Review Of Systems: See Below (See history of present illness) ED EXAM, GENERAL - Physical Exam Exam: See Below (See history of present illness) Course - Vital Signs Last Recorded V/S: Last Vital Signs Temp 36.8 C 08/22/17 21:35 Pulse 68 08/22/17 23:04 Resp 18 08/22/17 23:04 BP 154/76 H 08/22/17 23:04 Pulse Ox 97 08/22/17 23:04 - Orders/Labs/Meds Orders: Active Orders 24 hr Category Date Time Status EKG Documentation Completion [RC] STAT Care 08/22/17 22:33 Active Chest 2V [CR] Stat Exams 08/22/17 22:33 Taken UA W/MICROSCOPIC [URIN] Stat Lab 08/22/17 22:33 Received Sodium Chloride 0.9% [Saline Flush] Med 08/22/17 22:33 Active 10 ml FLUSH ASDIRECTED PRN Sodium Chloride 0.9% [Saline Flush] Med 08/22/17 22:33 Active 2.5 ml FLUSH ASDIRECTED PRN Saline Lock Insert [OM.PC] Stat Oth 08/22/17 22:33 Ordered Medication Orders Sodium Chloride (Saline Flush) 10 ml FLUSH ASDIRECTED PRN PRN Reason: Keep Vein Open Sodium Chloride (Saline Flush) 2.5 ml FLUSH ASDIRECTED PRN PRN Reason: Keep Vein Open Labs: Laboratory Tests 08/22/17 08/22/17 08/22/17 Range/Units 22:42 22:42 22:42 WBC 7.93 (4.0-11.0) K/uL RBC 5.00 (4.50-5.90) M/uL Hgb 14.3 (13.0-17.0) g/dL Hct 42.1 (38.0-50.0) % MCV 84.2 (80.0-98.0) fL MCH 28.6 (27.0-32.0) pg MCHC 34.0 (31.0-37.0) g/dL RDW Std Deviation 41.1 (28.0-62.0) fl RDW Coeff of [place] 13 (11.0-15.0) % Plt Count 179 (150-400) K/uL MPV 10.40 (7.40-12.00) fL Neut % (Auto) 67.6 (48.0-80.0) % Lymph % (Auto) 21.9 (16.0-40.0) % [place] % (Auto) 8.2 (0.0-15.0) % Eos % (Auto) 2.0 (0.0-7.0) % Baso % (Auto) 0.3 (0.0-1.5) % Neut # (Auto) 5.4 (1.4-5.7) K/uL Lymph # (Auto) 1.7 (0.6-2.4) K/uL [place] # (Auto) 0.7 (0.0-0.8) K/uL Eos # (Auto) 0.2 (0.0-0.7) K/uL Baso # (Auto) 0.0 (0.0-0.1) K/uL Nucleated RBC % 0.0 /100WBC Nucleated RBCs # 0 K/uL INR 0.97 (0.86-1.11) Sodium 141 (136-146) mmol/L Potassium 4.2 (3.5-5.1) mmol/L Chloride 107 (98-110) mmol/L Carbon Dioxide 24 (21-31) mmol/L BUN 25 H (6.0-23.0) mg/dL Creatinine 1.1 (0.6-1.5) mg/dL Est Cr Clr Drug Dosing 99.94 mL/min Estimated GFR (MDRD) > 60.0 ml/min Glucose 92 (60-110) mg/dL Calcium 9.2 (8.8-10.8) mg/dL Total Bilirubin 0.4 (0.1-1.5) mg/dL AST 16 (5-40) IU/L ALT 28 (8-54) IU/L Alkaline Phosphatase 81 (40-150) Troponin I < 0.10 (0.0-0.29) NG/ML Total Protein 7.2 (6.0-8.0) g/dL Albumin 4.3 (3.5-5.0) g/dL Globulin 2.9 (2.0-3.5) g/dL Albumin/Globulin Ratio 1.5 (1.3-2.8) Amylase 51 (10-90) U/L Lipase 25 (7-80) U/L Meds: Medications Generic Name Dose Route Start Last Admin Trade Name Freq PRN Reason Stop Dose Admin Sodium Chloride 10 ml 08/22/17 22:33 Saline Flush FLUSH ASDIRECTED PRN Keep Vein Open Sodium Chloride 2.5 ml 08/22/17 22:33 Saline Flush FLUSH ASDIRECTED PRN Keep Vein Open Discontinued Medications Generic Name Dose Route Start Last Admin Trade Name Chris PRN Reason Stop Dose Admin Aspirin 324 mg 08/22/17 22:33 08/22/17 23:02 Aspirin PO 08/22/17 22:34 324 mg ONETIME ONE Administration Al Hydroxide/Mg Hydroxide 15 0 ml 08/22/17 22:33 08/22/17 23:07 ml/ Metoclopramide HCl 5 mg/ PO 08/22/17 22:34 1 each Lidocaine HCl 5 ml ONETIME ONE Administration Famotidine 20 mg 08/22/17 22:33 08/22/17 23:08 Pepcid IVPUSH 08/22/17 22:34 20 mg ONETIME ONE Administration Ketorolac Tromethamine 30 mg 08/22/17 22:33 08/22/17 23:26 Toradol IVPUSH 08/22/17 22:34 Not Given ONETIME ONE Nitroglycerin 0.5 gm 08/22/17 22:33 08/22/17 23:05 Nitro-Bid 2% TOP 08/22/17 22:34 0.5 gm ONETIME ONE Administration Departure - Departure Time of Disposition: :27 Disposition: Home, Self-Care 01 Reason for Transfer *Q: Primary PCI Indicated Clinical Impression: Atypical chest pain Referrals: Madison Trotter DO [Primary Care Provider] - Forms: ED Department Discharge Additional Instructions: The following information is given to patients seen in the emergency department who are being discharged to home. This information is to outline your options for follow-up care. We provide all patients seen in our emergency department with a follow-up referral. The need for follow-up, as well as the timing and circumstances, are variable depending upon the specifics of your emergency department visit. If you don't have a primary care physician on staff, we will provide you with a referral. We always advise you to contact your personal physician following an emergency department visit to inform them of the circumstance of the visit and for follow-up with them and/or the need for any referrals to a consulting specialist. The emergency department will also refer you to a specialist when appropriate. This referral assures that you have the opportunity for follow-up care with a specialist. All of these measure are taken in an effort to provide you with optimal care, which includes your follow-up. Under all circumstances we always encourage you to contact your private physician who remains a resource for coordinating your care. When calling for follow-up care, please make the office aware that this follow-up is from your recent emergency room visit. If for any reason you are refused follow-up, please contact the [facility] Emergency Department at and asked to speak to the emergency department charge nurse. Follow-up with metal wire coating operator as discussed Please call primary care provider and metal wire coating operator tomorrow for further resolution and treatment of your cardiac issues Return to ED as needed as discussed - My Orders Last 24 Hours: My Active Orders 08/22/17 22:33 EKG Documentation Completion [RC] STAT Chest 2V [CR] Stat UA W/MICROSCOPIC [URIN] Stat Sodium Chloride 0.9% [Saline Flush] 10 ml FLUSH ASDIRECTED PRN Sodium Chloride 0.9% [Saline Flush] 2.5 ml FLUSH ASDIRECTED PRN Saline Lock Insert [OM.PC] Stat - Assessment/Plan Last 24 Hours: My Active Orders 08/22/17 22:33 EKG Documentation Completion [RC] STAT Chest 2V [CR] Stat UA W/MICROSCOPIC [URIN] Stat Sodium Chloride 0.9% [Saline Flush] 10 ml FLUSH ASDIRECTED PRN Sodium Chloride 0.9% [Saline Flush] 2.5 ml FLUSH ASDIRECTED PRN Saline Lock Insert [OM.PC] Stat
[2017-08-22 23:15] LABS: CHLORIDE,CL 107 mmol/L (98-110); SODIUM,NA 141 mmol/L (136-146)
[2017-08-23] MEDS ORDERED: Nitroglycerin 0.4 MG Tab.SL ONE (01:24)
[2017-08-23] MEDS ORDERED: Nitroglycerin 0.4 MG Tab.SL SL PRN (01:42)
[2017-08-23 01:52] VITALS: BP 119/71
--- NOTE | 2017-08-23 10:45 | CR ---
EXAM DATE: 08/22/17 PATIENT'S AGE: 36 Patient: DEMARCO TAMAYO Facility: [place], [place] Site . Site : 1980 Study: XRay Chest [id number]/2018 11:35:16 PM Ordering Physician: Doctor Damian Final Report: Indication: Chest pain. Comparison: PA/lateral chest 05/23/2017. Findings: Bony thorax and soft tissue structures are intact. Cardiac and mediastinal silhouettes are normal. The pulmonary vasculature is normal. The lungs are free of infiltrate. There are no pleural effusions. Impression: No active cardiopulmonary disease. Dictated by Qi Solomon MD @ Aug 22 2017 11:42PM (Electronic Signature) Report Signed by Proxy. DONNA
== END 2017-08-23 01:50 | disposition home or self-care (01) ==
LOC: MW.ED 21:24
DX: R07.89 Other chest pain (principal); Z79.82 Long term (current) use of aspirin; Z79.899 Other long term (current) drug therapy
CPT/HCPCS: 36415; 71046; 80053; 81001; 82150; 83690; 84484; 85025; 85610; 93005; 96374; 99285; A9270; 99283

== ENCOUNTER 2018-05-09 13:49 | Emergency (ER) | payer BC ==
[2018-05-09] MEDS ORDERED: Sodium Chloride 0.9% 1,000 ML IV ONE (13:51)
[2018-05-09] MEDS ORDERED: Sodium Chloride 0.9% 10 ML Syringe FLUSH PRN (13:51)
[2018-05-09] MEDS ORDERED: Sodium Chloride 0.9% 2.5 ML Syringe FLUSH PRN (13:51)
--- NOTE | 2018-05-09 14:00 | EDM.PDOC ---
ED HPI GENERAL MEDICAL PROBLEM - General Chief Complaint: Cardiovascular Problem Stated Complaint: LIGHT HEADED CHEST PAINS Time Seen by Provider: 05/09/18 14:00 Source of Information: Reports: Patient History Limitations: Reports: No Limitations - History of Present Illness INITIAL COMMENTS - FREE TEXT/NARRATIVE: HISTORY AND PHYSICAL: History of present illness: Patient is a 37-year-old male here with complaint of palpitations, chest pain, and light headedness. 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 He reports he's had 3 ablations to try to correct the PVCs in [place]. He reports he can always feel the PVCs but states it was worse last night and today. He states he had some sharp chest pain on and off today along with light headedness that resolved just prior to arriving to the ED. He states he felt a little nauseous and short of breath but denies any abdominal pain, headache, vomiting, diarrhea. Patient did take 650mg of Aspirin today. Review of systems: As per history of present illness and below otherwise all systems reviewed and negative. Past medical history: As per history of present illness and as reviewed below otherwise noncontributory. Surgical history: As per history of present illness and as reviewed below otherwise noncontributory. Social history: No reported history of drug or alcohol abuse. Family history: As per history of present illness and as reviewed below otherwise noncontributory. Physical exam: General: Patient sitting comfortably in no acute distress and nontoxic appearing HEENT: Atraumatic, normocephalic, pupils reactive, negative for conjunctival pallor or scleral icterus, mucous membranes moist, throat clear, neck supple, nontender, trachea midline. No meningeal signs. Lungs: Clear to auscultation, breath sounds equal bilaterally, chest nontender. Heart: S1S2, regular, negative for clicks, rubs, or overt murmur. Abdomen: Soft, nondistended, nontender. Negative for masses or hepatosplenomegaly. Negative for costovertebral tenderness. Pelvis: Stable nontender. Genitourinary: Deferred. Rectal: Deferred. Extremities: Atraumatic, negative for cords or calf pain. Neurovascular unremarkable. Neuro: Awake, alert, oriented. Cranial nerves II through XII unremarkable. Cerebellum unremarkable. Motor and sensory unremarkable throughout. Exam nonfocal. Notes: Discussed at length with patient that I'd like to admit him for observation on telemetry. Patient declined at this time. AMA form was signed. Diagnostics: EKG, CXR, CBC, CMP, troponin Therapeutics: None Prescriptions: None Impression: Palpitations, ventricular trigeminy, chest pain Plan: 1. Follow up with pastry cook helper or primary care provider 2. Return to ED as needed as discussed Definitive disposition and diagnosis as appropriate pending reevaluation and review of above. - Related Data Allergies Allergy/AdvReac Type Severity Reaction Status Date / Time No Known Allergies Allergy Verified 05/09/18 13:51 Home Meds: Home Meds Aspirin 650 mg PO DAILY 03/23/14 [History] Fish Oil/[place]-3 Fatty Acids [Fish Oil] 1,200 mg PO DAILY 05/07/15 [History] Garlic 1 tab PO DAILY 05/07/15 [History] Diltiazem HCl [Diltiazem 24Hr ER] 360 mg PO DAILY 03/17/17 [History] Esomeprazole Magnesium [Nexium] 20 mg PO DAILY 05/24/17 [History] Glucosamine/D3/Boswellia Samia [Osteo Bi-Flex Caplet] 2 tab PO DAILY 05/24/17 [ History] Multivits-Minerals/FA/Lycopene [One-A-Day Men's Tablet] 1 tab PO DAILY 05/24/17 [History] Valsartan 80 mg PO DAILY 05/24/17 [History] Past Medical History - Past Health History Medical/Surgical History: Denies Medical/Surgical History HEENT History: Reports: None Cardiovascular History: Reports: Afib, Hypertension Respiratory History: Reports: None Gastrointestinal History: Reports: None, GERD Genitourinary History: Reports: None Musculoskeletal History: Reports: None Neurological History: Reports: None Psychiatric History: Reports: None Endocrine/Metabolic History: Reports: None Hematologic History: Reports: None Oncologic (Cancer) History: Reports: None Dermatologic History: Reports: None - Infectious Disease History Infectious Disease History: Reports: Chicken Pox - Past Surgical History Cardiovascular Surgical History: Reports: Cardiac Ablation, Other (See Below) Other Cardiovascular Surgeries/Procedures: x3 ablasions Other Musculoskeletal Surgeries/Procedures:: Carpal tunnel surgery Social & Family History - Family History Family Medical History: Noncontributory - Tobacco Use Smoking Status *Q: Never Smoker Second Hand Smoke Exposure: No - Caffeine Use Caffeine Use: Reports: Coffee - Recreational Drug Use Recreational Drug Use: No ED ROS GENERAL - Review of Systems Review Of Systems: ROS reveals no pertinent complaints other than HPI. ED EXAM, GENERAL - Physical Exam Exam: See Below (see dictation) Course - Vital Signs Last Recorded V/S: Last Vital Signs Temp 36.8 C 05/09/18 13:52 Pulse 74 05/09/18 13:52 Resp 18 05/09/18 13:52 BP 183/94 H 05/09/18 13:52 Pulse Ox 97 05/09/18 13:52 - Orders/Labs/Meds Orders: Active Orders 24 hr Category Date Time Status EKG Documentation Completion [RC] STAT Care 05/09/18 13:50 Active Sodium Chloride 0.9% [Saline Flush] Med 05/09/18 13:51 Active 10 ml FLUSH ASDIRECTED PRN Sodium Chloride 0.9% [Saline Flush] Med 05/09/18 13:51 Active 2.5 ml FLUSH ASDIRECTED PRN Saline Lock Insert [OM.PC] Stat Oth 05/09/18 13:50 Ordered Medication Orders Sodium Chloride (Saline Flush) 10 ml FLUSH ASDIRECTED PRN PRN Reason: Keep Vein Open Last Admin: 05/09/18 14:11 Dose: 10 ml Sodium Chloride (Saline Flush) 2.5 ml FLUSH ASDIRECTED PRN PRN Reason: Keep Vein Open Last Admin: 05/09/18 14:11 Dose: 2.5 ml Labs: Laboratory Tests 05/09/18 05/09/18 05/09/18 Range/Units 13:50 13:50 13:50 WBC 5.78 (4.0-11.0) K/uL RBC 5.46 (4.50-5.90) M/uL Hgb 15.3 (13.0-17.0) g/dL Hct 45.4 (38.0-50.0) % MCV 83.2 (80.0-98.0) fL MCH 28.0 (27.0-32.0) pg MCHC 33.7 (31.0-37.0) g/dL RDW Std Deviation 43.8 (28.0-62.0) fl RDW Coeff of [place] 15 (11.0-15.0) % Plt Count 179 (150-400) K/uL MPV 10.70 (7.40-12.00) fL Neut % (Auto) 73.6 (48.0-80.0) % Lymph % (Auto) 21.1 (16.0-40.0) % [place] % (Auto) 4.3 (0.0-15.0) % Eos % (Auto) 1.0 (0.0-7.0) % Baso % (Auto) 0.0 (0.0-1.5) % Neut # (Auto) 4.3 (1.4-5.7) K/uL Lymph # (Auto) 1.2 (0.6-2.4) K/uL [place] # (Auto) 0.3 (0.0-0.8) K/uL Eos # (Auto) 0.1 (0.0-0.7) K/uL Baso # (Auto) 0.0 (0.0-0.1) K/uL Nucleated RBC % 0.0 /100WBC Nucleated RBCs # 0 K/uL Sodium 140 (136-148) mmol/L Potassium 3.6 (3.5-5.1) mmol/L Chloride 105 (98-107) mmol/L Carbon Dioxide 23.5 (21.0-32.0) mmol/L BUN 28 H (7.0-18.0) mg/dL Creatinine 1.4 H (0.8-1.3) mg/dL Est Cr Clr Drug Dosing 86.97 mL/min Estimated GFR (MDRD) 56.4 ml/min Glucose 101 (74-106) mg/dL Calcium 9.1 (8.5-10.1) mg/dL Magnesium 2.0 (1.8-2.4) mg/dL Total Bilirubin 0.5 (0.2-1.0) mg/dL AST 25 (15-37) IU/L ALT 44 (14-63) IU/L Alkaline Phosphatase 87 (46-116) U/L Troponin I < 0.050 (0.000-0.056) ng/mL Total Protein 7.3 (6.4-8.2) g/dL Albumin 4.0 (3.4-5.0) g/dL Globulin 3.3 (2.0-3.5) g/dL Albumin/Globulin Ratio 1.2 L (1.3-2.8) Lipase 116 (73-393) U/L Meds: Medications Generic Name Dose Route Start Last Admin Trade Name Freq PRN Reason Stop Dose Admin Sodium Chloride 10 ml 05/09/18 13:51 05/09/18 14:11 Saline Flush FLUSH 10 ml ASDIRECTED PRN Administration Keep Vein Open Sodium Chloride 2.5 ml 05/09/18 13:51 05/09/18 14:11 Saline Flush FLUSH 2.5 ml ASDIRECTED PRN Administration Keep Vein Open Discontinued Medications Generic Name Dose Route Start Last Admin Trade Name Freq PRN Reason Stop Dose Admin Sodium Chloride 1,000 mls @ 999 mls/hr 05/09/18 13:51 05/09/18 14:11 Normal Saline IV 05/09/18 14:51 999 mls/hr STAT ONE Administration Departure - Departure Time of Disposition: 16:12 Disposition: Home, Self-Care 01 Condition: Good Clinical Impression: Palpitations, Chest pain Referrals: PCP,None [Primary Care Provider] - Forms: ED Department Discharge Additional Instructions: The following information is given to patients seen in the emergency department who are being discharged to home. This information is to outline your options for follow-up care. We provide all patients seen in our emergency department with a follow-up referral. The need for follow-up, as well as the timing and circumstances, are variable depending upon the specifics of your emergency department visit. If you don't have a primary care physician on staff, we will provide you with a referral. We always advise you to contact your personal physician following an emergency department visit to inform them of the circumstance of the visit and for follow-up with them and/or the need for any referrals to a consulting specialist. The emergency department will also refer you to a specialist when appropriate. This referral assures that you have the opportunity for follow-up care with a specialist. All of these measure are taken in an effort to provide you with optimal care, which includes your follow-up. Under all circumstances we always encourage you to contact your private physician who remains a resource for coordinating your care. When calling for follow-up care, please make the office aware that this follow-up is from your recent emergency room visit. If for any reason you are refused follow-up, please contact the [facility] Emergency Department at and asked to speak to the emergency department charge nurse. 1. Follow up with pastry cook helper or primary care provider 2. Return to ED as needed as discussed - My Orders Last 24 Hours: My Active Orders 05/09/18 13:50 EKG Documentation Completion [RC] STAT Saline Lock Insert [OM.PC] Stat 05/09/18 13:51 Sodium Chloride 0.9% [Saline Flush] 10 ml FLUSH ASDIRECTED PRN Sodium Chloride 0.9% [Saline Flush] 2.5 ml FLUSH ASDIRECTED PRN - Assessment/Plan Last 24 Hours: My Active Orders 05/09/18 13:50 EKG Documentation Completion [RC] STAT Saline Lock Insert [OM.PC] Stat 05/09/18 13:51 Sodium Chloride 0.9% [Saline Flush] 10 ml FLUSH ASDIRECTED PRN Sodium Chloride 0.9% [Saline Flush] 2.5 ml FLUSH ASDIRECTED PRN
[2018-05-09 14:30] LABS: CHLORIDE,CL 105 mmol/L (98-107); SODIUM,NA 140 mmol/L (136-148)
--- NOTE | 2018-05-09 15:07 | CR ---
EXAMINATION: Portable chest radiograph. HISTORY: Shortness of breath. FINDINGS: The trachea is midline. The cardiomediastinal silhouette is within normal limits. No pulmonary infilt rates, effusions or pneumothorax. Osseous structures appear unremarkable. IMPRESSION: No acute cardiopulmonary process.
[2018-05-09 16:56] VITALS: BP 125/68
== END 2018-05-09 16:26 | disposition home or self-care (01) ==
LOC: MW.ED 13:49
DX: R07.9 Chest pain, unspecified (principal); R00.2 Palpitations; R00.8 Other abnormalities of heart beat; Z79.82 Long term (current) use of aspirin; Z79.899 Other long term (current) drug therapy; I10 Essential (primary) hypertension
CPT/HCPCS: 36415; 71045; 80053; 83690; 83735; 84484; 85025; 93005; 96360; 96361; 99285; J7040

== ENCOUNTER 2018-05-10 19:55 | Observation (INO) | payer BC ==
--- NOTE | 2018-05-10 20:22 | EDM.PDOC ---
ED HPI GENERAL MEDICAL PROBLEM - General Chief Complaint: General Stated Complaint: LIGHT HEADED AND DIZZY Time Seen by Provider: 05/10/18 20:06 - History of Present Illness INITIAL COMMENTS - FREE TEXT/NARRATIVE: HISTORY AND PHYSICAL: History of present illness: Patient is a 37-year-old male with a history of PVCs and A. fib in the past for which he has had ablations with a coil strapper in [place] and was seen here yesterday for lightheadedness chest pain and ill-defined symptoms. He had an EKG and a full lab workup and chest x-ray and was offered admission but because we had no beds he was offered transfer and he declined. He says that today he has not had chest pain or shortness of breath no abdominal pain fevers or chills but he has had these episodes of lightheadedness which is not a spinning- like sensation but more like he might pass out. He has not passed out. When he was in [facility] he felt very close and his said that he looked bad. He was able to speak clearly and had no pain associated with it. He has been eating and drinking normally and has no abdominal pain no extremity complaints no weakness numbness or tingling no head neck or back pain and no fevers or chills. Patient presents for follow-up and says he did try to contact his coil strapper in [place] but when he did get a call back he missed a call. According to his understanding he was going to potentially go back and have more testing and procedures done. As it sometimes he feels worse with position change but it is not specific and he has no inner ear trouble or history no sore throat. Review of systems: As per history of present illness and below otherwise all systems reviewed and negative. Past medical history: As per history of present illness and as reviewed below otherwise noncontributory. Surgical history: As per history of present illness and as reviewed below otherwise noncontributory. Social history: No reported history of drug or alcohol abuse. Family history: As per history of present illness and as reviewed below otherwise noncontributory. Physical exam: General: Well-developed well-nourished man who is nontoxic and mildly overweight. He moves easily in the ED without distress. HEENT: Atraumatic, normocephalic, pupils reactive, negative for conjunctival pallor or scleral icterus, mucous membranes moist, throat clear, neck supple, nontender, trachea midline. TMs are normal bilaterally. Lungs: Clear to auscultation, breath sounds equal bilaterally, chest nontender. Heart: S1S2, regular rhythm no overt murmurs Abdomen: Soft, nondistended, nontender. Negative for masses or hepatosplenomegaly. Negative for costovertebral tenderness. Pelvis: Stable nontender. Genitourinary: Deferred. Rectal: Deferred. Extremities: Atraumatic, negative for cords or calf pain. Neurovascular unremarkable. No pedal edema Neuro: Awake, alert, oriented. Cranial nerves II through XII unremarkable. Cerebellum unremarkable. Motor and sensory unremarkable throughout. Exam nonfocal. Diagnostics: EKG orthostatic vitals CBC CMP INR TSH troponin UA magnesium level CT scan of the head Patient had a chest x-ray yesterday was normal and will not repeated. All labs were reviewed from yesterday and EKG was reviewed Therapeutics: IV O2 monitor Orthostatics were negative by numbers but the patient did feel a little lightheaded going from laying to standing. 2052: Case was discussed with Dr. Martinez our hospitalist as he was on the phone about another patient and I discussed this case at length with him and he has agreed for observation admission. I will follow-up all testing results and have this dialogue with the patient. 2114: Dr. Martinez has seen the patient and except the patient for observation admission. The patient is aware of this. Impression: Lightheadedness, near-syncope/presyncopal Definitive disposition and diagnosis as appropriate pending reevaluation and review of above. - Related Data Allergies Allergy/AdvReac Type Severity Reaction Status Date / Time No Known Allergies Allergy Verified 05/10/18 20:08 Home Meds: Home Meds Aspirin 650 mg PO DAILY 03/23/14 [History] Fish Oil/[place]-3 Fatty Acids [Fish Oil] 1,200 mg PO DAILY 05/07/15 [History] Garlic 1 tab PO DAILY 05/07/15 [History] Diltiazem HCl [Diltiazem 24Hr ER] 360 mg PO DAILY 03/17/17 [History] Esomeprazole Magnesium [Nexium] 20 mg PO DAILY 05/24/17 [History] Glucosamine/D3/Boswellia Samia [Osteo Bi-Flex Caplet] 2 tab PO DAILY 05/24/17 [ History] Multivits-Minerals/FA/Lycopene [One-A-Day Men's Tablet] 1 tab PO DAILY 05/24/17 [History] Valsartan 80 mg PO DAILY 05/24/17 [History] Past Medical History - Past Health History Medical/Surgical History: Denies Medical/Surgical History HEENT History: Reports: None Cardiovascular History: Reports: Afib, Hypertension Respiratory History: Reports: None Gastrointestinal History: Reports: None, GERD Genitourinary History: Reports: None Musculoskeletal History: Reports: None Neurological History: Reports: None Psychiatric History: Reports: None Endocrine/Metabolic History: Reports: None Hematologic History: Reports: None Oncologic (Cancer) History: Reports: None Dermatologic History: Reports: None - Infectious Disease History Infectious Disease History: Reports: Chicken Pox - Past Surgical History Cardiovascular Surgical History: Reports: Cardiac Ablation, Other (See Below) Other Cardiovascular Surgeries/Procedures: x3 ablasions Other Musculoskeletal Surgeries/Procedures:: Carpal tunnel surgery Social & Family History - Family History Family Medical History: Noncontributory - Tobacco Use Smoking Status *Q: Never Smoker Second Hand Smoke Exposure: No - Caffeine Use Caffeine Use: Reports: Coffee - Recreational Drug Use Recreational Drug Use: No ED ROS GENERAL - Review of Systems Review Of Systems: ROS reveals no pertinent complaints other than HPI. ED EXAM, GENERAL - Physical Exam Exam: See Below (see Dictation) Course - Vital Signs Last Recorded V/S: Last Vital Signs Temp 36.7 C 05/10/18 20:04 Pulse 72 05/10/18 20:04 Resp 18 05/10/18 20:04 BP 143/76 H 05/10/18 20:04 Pulse Ox 98 05/10/18 20:04 Orthostatic Blood Pressure [ 132/62 Supine] Orthostatic Blood Pressure [ 121/62 Sitting] Orthostatic Blood Pressure [ 129/57 Standing] - Orders/Labs/Meds Orders: Active Orders 24 hr Category Date Time Status Patient Status [ADT] Stat ADT 05/10/18 21:30 Ordered Cardiac Monitoring [RC] . DIRECTED Care 05/10/18 20:08 Active EKG Documentation Completion [RC] STAT Care 05/10/18 20:08 Active Orthostatic Vital Signs [RC] ASDIRECTED Care 05/10/18 20:08 Active Oxygen Therapy, ED [RC] ASDIRECTED Care 05/10/18 20:08 Active Pulse Oximetry [RC] ASDIRECTED Care 05/10/18 20:08 Active Head wo Cont [CT] Stat Exams 05/10/18 20:17 Taken UA W/MICROSCOPIC [URIN] Stat Lab 05/10/18 20:17 Ordered Sodium Chloride 0.9% [Normal Saline] 1,000 ml Med 05/10/18 21:30 Ordered IV STAT Labs: Laboratory Tests 05/10/18 05/10/18 05/10/18 Range/Units 20:42 20:42 20:42 WBC 7.09 (4.0-11.0) K/uL RBC 5.20 (4.50-5.90) M/uL Hgb 14.6 (13.0-17.0) g/dL Hct 43.5 (38.0-50.0) % MCV 83.7 (80.0-98.0) fL MCH 28.1 (27.0-32.0) pg MCHC 33.6 (31.0-37.0) g/dL RDW Std Deviation 44.8 (28.0-62.0) fl RDW Coeff of [place] 15 (11.0-15.0) % Plt Count 176 (150-400) K/uL MPV 10.90 (7.40-12.00) fL Neut % (Auto) 59.8 (48.0-80.0) % Lymph % (Auto) 23.6 (16.0-40.0) % [place] % (Auto) 7.8 (0.0-15.0) % Eos % (Auto) 8.5 H (0.0-7.0) % Baso % (Auto) 0.3 (0.0-1.5) % Neut # (Auto) 4.3 (1.4-5.7) K/uL Lymph # (Auto) 1.7 (0.6-2.4) K/uL [place] # (Auto) 0.6 (0.0-0.8) K/uL Eos # (Auto) 0.6 (0.0-0.7) K/uL Baso # (Auto) 0.0 (0.0-0.1) K/uL Nucleated RBC % 0.0 /100WBC Nucleated RBCs # 0 K/uL INR 1.04 Sodium 142 (136-148) mmol/L Potassium 3.4 L (3.5-5.1) mmol/L Chloride 107 (98-107) mmol/L Carbon Dioxide 25.1 (21.0-32.0) mmol/L BUN 27 H (7.0-18.0) mg/dL Creatinine 1.4 H (0.8-1.3) mg/dL Est Cr Clr Drug Dosing 77.75 mL/min Estimated GFR (MDRD) 56.4 ml/min Glucose 96 (74-106) mg/dL Calcium 8.6 (8.5-10.1) mg/dL Magnesium 2.2 (1.8-2.4) mg/dL Total Bilirubin 0.2 (0.2-1.0) mg/dL AST 15 (15-37) IU/L ALT 37 (14-63) IU/L Alkaline Phosphatase 93 (46-116) U/L Troponin I < 0.050 (0.000-0.056) ng/mL Total Protein 7.0 (6.4-8.2) g/dL Albumin 3.8 (3.4-5.0) g/dL Globulin 3.2 (2.0-3.5) g/dL Albumin/Globulin Ratio 1.2 L (1.3-2.8) TSH 3rd Generation 3.01 (0.36-3.74) uIU/mL Departure - Departure Time of Disposition: 21:32 Disposition: Refer to Observation Condition: Good Clinical Impression: Lightheadedness, Near syncope - Discharge Information Referrals: PCP,None [Primary Care Provider] - Forms: ED Department Discharge - My Orders Last 24 Hours: My Active Orders 05/10/18 20:08 Cardiac Monitoring [RC] . DIRECTED EKG Documentation Completion [RC] STAT Orthostatic Vital Signs [RC] ASDIRECTED Oxygen Therapy, ED [RC] ASDIRECTED Pulse Oximetry [RC] ASDIRECTED 05/10/18 20:17 Head wo Cont [CT] Stat UA W/MICROSCOPIC [URIN] Stat 05/10/18 21:30 Patient Status [ADT] Stat Sodium Chloride 0.9% [Normal Saline] 1,000 ml IV STAT - Assessment/Plan Last 24 Hours: My Active Orders 05/10/18 20:08 Cardiac Monitoring [RC] . DIRECTED EKG Documentation Completion [RC] STAT Orthostatic Vital Signs [RC] ASDIRECTED Oxygen Therapy, ED [RC] ASDIRECTED Pulse Oximetry [RC] ASDIRECTED 05/10/18 20:17 Head wo Cont [CT] Stat UA W/MICROSCOPIC [URIN] Stat 05/10/18 21:30 Patient Status [ADT] Stat Sodium Chloride 0.9% [Normal Saline] 1,000 ml IV STAT
[2018-05-10 21:23] LABS: CHLORIDE,CL 107 mmol/L (98-107); SODIUM,NA 142 mmol/L (136-148)
[2018-05-10] MEDS ORDERED: Sodium Chloride 0.9% 1,000 ML IV ONE (21:30)
--- NOTE | 2018-05-10 22:26 | PCM.HP ---
H&P History of Present Illness - General Date of Service: 05/10/18 Admit Problem/Dx: Admission Diagnosis/Problem Admission Diagnosis/Problem Lightheadedness Source of Information: Patient, Family, Old Records, Provider - History of Present Illness Initial Comments - Free Text/Narative: He was seen in the ED yesterday for near syncope and transfer to [facility] was offered as there were no beds available here. He declined. He presented today because he has had increased palpitations and lightheadedness. He states that he had four beers a few days ago and averages less than 14 beers per week. He states that he has a long history of atrial fibrillation and PVC's and has seen multiple cardiologists. He has had multiple ablations in the past. He does not think that alcohol intake has any relation to symptoms of PVCs. He has no amphetamine or other stimulant use except occasional ( not daily) use of caffeine. He uses smokely tobacco. he had occasion brief ( five second) episodes of chest pain yesterday no dyspnea now. HE can feel the PVCs, he states and describes it as a flip flopping sensation in his chest. - Related Data Allergies/Adverse Reactions: Allergies Allergy/AdvReac Type Severity Reaction Status Date / Time No Known Allergies Allergy Verified 05/10/18 20:08 Home Medications: Home Meds Aspirin 650 mg PO DAILY 03/23/14 [History] Fish Oil/[place]-3 Fatty Acids [Fish Oil] 1,200 mg PO DAILY 05/07/15 [History] Garlic 1 tab PO DAILY 05/07/15 [History] Diltiazem HCl [Diltiazem 24Hr ER] 360 mg PO DAILY 03/17/17 [History] Esomeprazole Magnesium [Nexium] 20 mg PO DAILY 05/24/17 [History] Glucosamine/D3/Boswellia Samia [Osteo Bi-Flex Caplet] 2 tab PO DAILY 05/24/17 [ History] Multivits-Minerals/FA/Lycopene [One-A-Day Men's Tablet] 1 tab PO DAILY 05/24/17 [History] Valsartan 80 mg PO DAILY 05/24/17 [History] Past Medical History - Past Health History Medical/Surgical History: Denies Medical/Surgical History HEENT History: Reports: None Cardiovascular History: Reports: Afib, Hypertension Respiratory History: Reports: None Gastrointestinal History: Reports: None, GERD Genitourinary History: Reports: None Musculoskeletal History: Reports: None Neurological History: Reports: None Psychiatric History: Reports: None Endocrine/Metabolic History: Reports: None Hematologic History: Reports: None Oncologic (Cancer) History: Reports: None Dermatologic History: Reports: None - Infectious Disease History Infectious Disease History: Reports: Chicken Pox - Past Surgical History Cardiovascular Surgical History: Reports: Cardiac Ablation, Other (See Below) Other Cardiovascular Surgeries/Procedures: x3 ablasions Other Musculoskeletal Surgeries/Procedures:: Carpal tunnel surgery Social & Family History - Family History Family Medical History: Noncontributory - Tobacco Use Smoking Status *Q: Never Smoker Second Hand Smoke Exposure: No - Caffeine Use Caffeine Use: Reports: Coffee - Alcohol Use Alcohol Use Comment: he drinks on an average 14 or less beers per week. - Recreational Drug Use Recreational Drug Use: No H&P Review of Systems - Review of Systems: Review Of Systems: See Below General: Denies: Fever HEENT: Denies: Sinus Congestion, Sore Throat Pulmonary: Denies: Shortness of Breath, Wheezing, Cough, Sputum Cardiovascular: Reports: Chest Pain (as per HPI. NO chest pain now) Gastrointestinal: Denies: Abdominal Pain, Black Stool, Bloody Stool, Difficulty Swallowing, Hematemesis, Hematochezia Genitourinary: Denies: Dysuria, Burning, Hematuria Skin: Denies: Cyanosis Exam - Exam Exam: See Below - Vital Signs Vital Signs: Last Vital Signs Temp 98.1 F 05/10/18 20:04 Pulse 72 05/10/18 20:04 Resp 18 05/10/18 20:04 BP 143/76 H 05/10/18 20:04 Pulse Ox 98 05/10/18 20:04 Orthostatic Blood Pressure [ 132/62 Supine] Orthostatic Blood Pressure [ 121/62 Sitting] Orthostatic Blood Pressure [ 129/57 Standing] Weight: 131.542 kg - Exam General: Alert, Oriented, Cooperative HEENT: EOMI Neck: Supple, Trachea Midline Lungs: Clear to Auscultation, Normal Respiratory Effort Cardiovascular: Regular Rate, Regular Rhythm, Other (frequent skipped pulse on palpation. Dr Zamarripa reported frequent PVC's noted on cardiac monitoring. ) GI/Abdominal Exam: Soft, Non-Tender (Male) Exam: Deferred Rectal (Males) Exam: Deferred Extremities: Pedal Edema - Patient Data Lab Results Last 24 hrs: Laboratory Results - last 24 hr 05/10/18 05/10/18 05/10/18 Range/Units 20:42 20:42 20:42 WBC 7.09 (4.0-11.0) K/uL RBC 5.20 (4.50-5.90) M/uL Hgb 14.6 (13.0-17.0) g/dL Hct 43.5 (38.0-50.0) % MCV 83.7 (80.0-98.0) fL MCH 28.1 (27.0-32.0) pg MCHC 33.6 (31.0-37.0) g/dL RDW Std Deviation 44.8 (28.0-62.0) fl RDW Coeff of [place] 15 (11.0-15.0) % Plt Count 176 (150-400) K/uL MPV 10.90 (7.40-12.00) fL Neut % (Auto) 59.8 (48.0-80.0) % Lymph % (Auto) 23.6 (16.0-40.0) % [place] % (Auto) 7.8 (0.0-15.0) % Eos % (Auto) 8.5 H (0.0-7.0) % Baso % (Auto) 0.3 (0.0-1.5) % Neut # (Auto) 4.3 (1.4-5.7) K/uL Lymph # (Auto) 1.7 (0.6-2.4) K/uL [place] # (Auto) 0.6 (0.0-0.8) K/uL Eos # (Auto) 0.6 (0.0-0.7) K/uL Baso # (Auto) 0.0 (0.0-0.1) K/uL Nucleated RBC % 0.0 /100WBC Nucleated RBCs # 0 K/uL INR 1.04 Sodium 142 (136-148) mmol/L Potassium 3.4 L (3.5-5.1) mmol/L Chloride 107 (98-107) mmol/L Carbon Dioxide 25.1 (21.0-32.0) mmol/L BUN 27 H (7.0-18.0) mg/dL Creatinine 1.4 H (0.8-1.3) mg/dL Est Cr Clr Drug Dosing 77.75 mL/min Estimated GFR (MDRD) 56.4 ml/min Glucose 96 (74-106) mg/dL Calcium 8.6 (8.5-10.1) mg/dL Magnesium 2.2 (1.8-2.4) mg/dL Total Bilirubin 0.2 (0.2-1.0) mg/dL AST 15 (15-37) IU/L ALT 37 (14-63) IU/L Alkaline Phosphatase 93 (46-116) U/L Troponin I < 0.050 (0.000-0.056) ng/mL Total Protein 7.0 (6.4-8.2) g/dL Albumin 3.8 (3.4-5.0) g/dL Globulin 3.2 (2.0-3.5) g/dL Albumin/Globulin Ratio 1.2 L (1.3-2.8) TSH 3rd Generation 3.01 (0.36-3.74) uIU/mL Urine Color Urine Appearance Urine pH (5.0-8.0) Ur Specific [place] (1.001-1.035) Urine Protein (NEGATIVE) mg/dL Urine Glucose (UA) (NEGATIVE) mg/dL Urine Ketones (NEGATIVE) mg/dL Urine Occult Blood (NEGATIVE) Urine Nitrite (NEGATIVE) Urine Bilirubin (NEGATIVE) Urine Urobilinogen (<2.0) EU/dL Ur Leukocyte Esterase (NEGATIVE) Urine RBC (0-2/HPF) Urine WBC (0-5/HPF) Ur Epithelial Cells (NONE-FEW) Urine Bacteria (NEGATIVE) 05/10/18 Range/Units 21:40 WBC (4.0-11.0) K/uL RBC (4.50-5.90) M/uL Hgb (13.0-17.0) g/dL Hct (38.0-50.0) % MCV (80.0-98.0) fL MCH (27.0-32.0) pg MCHC (31.0-37.0) g/dL RDW Std Deviation (28.0-62.0) fl RDW Coeff of [place] (11.0-15.0) % Plt Count (150-400) K/uL MPV (7.40-12.00) fL Neut % (Auto) (48.0-80.0) % Lymph % (Auto) (16.0-40.0) % [place] % (Auto) (0.0-15.0) % Eos % (Auto) (0.0-7.0) % Baso % (Auto) (0.0-1.5) % Neut # (Auto) (1.4-5.7) K/uL Lymph # (Auto) (0.6-2.4) K/uL [place] # (Auto) (0.0-0.8) K/uL Eos # (Auto) (0.0-0.7) K/uL Baso # (Auto) (0.0-0.1) K/uL Nucleated RBC % /100WBC Nucleated RBCs # K/uL INR Sodium (136-148) mmol/L Potassium (3.5-5.1) mmol/L Chloride (98-107) mmol/L Carbon Dioxide (21.0-32.0) mmol/L BUN (7.0-18.0) mg/dL Creatinine (0.8-1.3) mg/dL Est Cr Clr Drug Dosing mL/min Estimated GFR (MDRD) ml/min Glucose (74-106) mg/dL Calcium (8.5-10.1) mg/dL Magnesium (1.8-2.4) mg/dL Total Bilirubin (0.2-1.0) mg/dL AST (15-37) IU/L ALT (14-63) IU/L Alkaline Phosphatase (46-116) U/L Troponin I (0.000-0.056) ng/mL Total Protein (6.4-8.2) g/dL Albumin (3.4-5.0) g/dL Globulin (2.0-3.5) g/dL Albumin/Globulin Ratio (1.3-2.8) TSH 3rd Generation (0.36-3.74) uIU/mL Urine Color YELLOW Urine Appearance CLEAR Urine pH 5.5 (5.0-8.0) Ur Specific [place] >= 1.030 (1.001-1.035) Urine Protein NEGATIVE (NEGATIVE) mg/dL Urine Glucose (UA) NEGATIVE (NEGATIVE) mg/dL Urine Ketones NEGATIVE (NEGATIVE) mg/dL Urine Occult Blood NEGATIVE (NEGATIVE) Urine Nitrite NEGATIVE (NEGATIVE) Urine Bilirubin NEGATIVE (NEGATIVE) Urine Urobilinogen 0.2 (<2.0) EU/dL Ur Leukocyte Esterase NEGATIVE (NEGATIVE) Urine RBC 0-1 (0-2/HPF) Urine WBC 0-1 (0-5/HPF) Ur Epithelial Cells RARE (NONE-FEW) Urine Bacteria RARE (NEGATIVE) Result Diagrams: 05/10/18 20:42 05/10/18 20:42 - Problem List (1) Premature ventricular contractions SNOMED Code(s): 87019984 ICD Code: I49.3 - VENTRICULAR PREMATURE DEPOLARIZATION Status: Acute Current Visit: Yes (2) Near syncope SNOMED Code(s): 151831591 ICD Code: R55 - SYNCOPE AND COLLAPSE Status: Acute Current Visit: Yes Problem List Initiated/Reviewed/Updated: Yes Orders Last 24hrs: Active Orders 24 hr Category Date Time Status Patient Status [ADT] Stat ADT 05/10/18 21:30 Active Cardiac Monitoring [RC] . DIRECTED Care 05/10/18 20:08 Active EKG Documentation Completion [RC] STAT Care 05/10/18 20:08 Active Orthostatic Vital Signs [RC] ASDIRECTED Care 05/10/18 20:08 Active Oxygen Therapy, ED [RC] ASDIRECTED Care 05/10/18 20:08 Active Pulse Oximetry [RC] ASDIRECTED Care 05/10/18 20:08 Active Head wo Cont [CT] Stat Exams 05/10/18 20:17 Taken Sodium Chloride 0.9% [Normal Saline] 1,000 ml Med 05/10/18 21:30 Active IV STAT Medication Orders Sodium Chloride (Normal Saline) 1,000 mls @ 999 mls/hr IV STAT ONE Stop: 05/10/18 22:30 Last Admin: 05/10/18 21:42 Dose: 999 mls/hr Assessment/Plan Comment:: 05/10/2018 see orders will seek cardiology consult tomorrow telemetry echocardiogram Josiah Martinez MD
[2018-05-10] MEDS ORDERED: Bisacodyl 5 MG Tab PO PRN (22:28)
[2018-05-10] MEDS ORDERED: Temazepam 15 MG Cap PO PRN (22:28)
[2018-05-10] MEDS ORDERED: Acetaminophen 500 MG Tab PO PRN (22:28)
[2018-05-11] MEDS ORDERED: Fish Oil/Omega-3 Fatty Acids 1 Gm Cap PO SCH (09:00)
[2018-05-11] MEDS ORDERED: Aspirin 325 MG Tab PO SCH (09:00)
[2018-05-11] MEDS ORDERED: Amiodarone 200 MG Tab PO SCH (09:00)
[2018-05-11] MEDS: Diltiazem 180 MG Cap.CD PO SCH ×2 (09:22→12:52)
[2018-05-11] MEDS: Omeprazole 20 MG Cap.CR PO SCH ×2 (09:23→12:52)
[2018-05-11] MEDS ORDERED: Potassium Chloride 20 MEQ Tab.ER PO ONE (09:55)
--- NOTE | 2018-05-11 10:00 | PCM.PN ---
- General Info Date of Service: 05/11/18 Subjective Update: No new complaints. He had possibly mild light headedness since being in the hospital but not nearly as severe as usual. - Patient Data Vitals - Most Recent: Last Vital Signs Temp 97.5 F 05/11/18 07:15 Pulse 83 05/11/18 07:15 Resp 18 05/11/18 07:15 BP 120/74 05/11/18 07:15 Pulse Ox 97 05/11/18 07:15 Orthostatic Blood Pressure [ 132/62 Supine] Orthostatic Blood Pressure [ 121/62 Sitting] Orthostatic Blood Pressure [ 129/57 Standing] Weight - Most Recent: 131.542 kg Lab Results Last 24 Hours: Laboratory Results - last 24 hr 05/10/18 05/10/18 05/10/18 Range/Units 20:42 20:42 20:42 WBC 7.09 (4.0-11.0) K/uL RBC 5.20 (4.50-5.90) M/uL Hgb 14.6 (13.0-17.0) g/dL Hct 43.5 (38.0-50.0) % MCV 83.7 (80.0-98.0) fL MCH 28.1 (27.0-32.0) pg MCHC 33.6 (31.0-37.0) g/dL RDW Std Deviation 44.8 (28.0-62.0) fl RDW Coeff of [place] 15 (11.0-15.0) % Plt Count 176 (150-400) K/uL MPV 10.90 (7.40-12.00) fL Neut % (Auto) 59.8 (48.0-80.0) % Lymph % (Auto) 23.6 (16.0-40.0) % [place] % (Auto) 7.8 (0.0-15.0) % Eos % (Auto) 8.5 H (0.0-7.0) % Baso % (Auto) 0.3 (0.0-1.5) % Neut # (Auto) 4.3 (1.4-5.7) K/uL Lymph # (Auto) 1.7 (0.6-2.4) K/uL [place] # (Auto) 0.6 (0.0-0.8) K/uL Eos # (Auto) 0.6 (0.0-0.7) K/uL Baso # (Auto) 0.0 (0.0-0.1) K/uL Nucleated RBC % 0.0 /100WBC Nucleated RBCs # 0 K/uL INR 1.04 Sodium 142 (136-148) mmol/L Potassium 3.4 L (3.5-5.1) mmol/L Chloride 107 (98-107) mmol/L Carbon Dioxide 25.1 (21.0-32.0) mmol/L BUN 27 H (7.0-18.0) mg/dL Creatinine 1.4 H (0.8-1.3) mg/dL Est Cr Clr Drug Dosing 77.75 mL/min Estimated GFR (MDRD) 56.4 ml/min Glucose 96 (74-106) mg/dL Calcium 8.6 (8.5-10.1) mg/dL Magnesium 2.2 (1.8-2.4) mg/dL Total Bilirubin 0.2 (0.2-1.0) mg/dL AST 15 (15-37) IU/L ALT 37 (14-63) IU/L Alkaline Phosphatase 93 (46-116) U/L Troponin I < 0.050 (0.000-0.056) ng/mL Total Protein 7.0 (6.4-8.2) g/dL Albumin 3.8 (3.4-5.0) g/dL Globulin 3.2 (2.0-3.5) g/dL Albumin/Globulin Ratio 1.2 L (1.3-2.8) TSH 3rd Generation 3.01 (0.36-3.74) uIU/mL Urine Color Urine Appearance Urine pH (5.0-8.0) Ur Specific [place] (1.001-1.035) Urine Protein (NEGATIVE) mg/dL Urine Glucose (UA) (NEGATIVE) mg/dL Urine Ketones (NEGATIVE) mg/dL Urine Occult Blood (NEGATIVE) Urine Nitrite (NEGATIVE) Urine Bilirubin (NEGATIVE) Urine Urobilinogen (<2.0) EU/dL Ur Leukocyte Esterase (NEGATIVE) Urine RBC (0-2/HPF) Urine WBC (0-5/HPF) Ur Epithelial Cells (NONE-FEW) Urine Bacteria (NEGATIVE) 05/10/18 Range/Units 21:40 WBC (4.0-11.0) K/uL RBC (4.50-5.90) M/uL Hgb (13.0-17.0) g/dL Hct (38.0-50.0) % MCV (80.0-98.0) fL MCH (27.0-32.0) pg MCHC (31.0-37.0) g/dL RDW Std Deviation (28.0-62.0) fl RDW Coeff of [place] (11.0-15.0) % Plt Count (150-400) K/uL MPV (7.40-12.00) fL Neut % (Auto) (48.0-80.0) % Lymph % (Auto) (16.0-40.0) % [place] % (Auto) (0.0-15.0) % Eos % (Auto) (0.0-7.0) % Baso % (Auto) (0.0-1.5) % Neut # (Auto) (1.4-5.7) K/uL Lymph # (Auto) (0.6-2.4) K/uL [place] # (Auto) (0.0-0.8) K/uL Eos # (Auto) (0.0-0.7) K/uL Baso # (Auto) (0.0-0.1) K/uL Nucleated RBC % /100WBC Nucleated RBCs # K/uL INR Sodium (136-148) mmol/L Potassium (3.5-5.1) mmol/L Chloride (98-107) mmol/L Carbon Dioxide (21.0-32.0) mmol/L BUN (7.0-18.0) mg/dL Creatinine (0.8-1.3) mg/dL Est Cr Clr Drug Dosing mL/min Estimated GFR (MDRD) ml/min Glucose (74-106) mg/dL Calcium (8.5-10.1) mg/dL Magnesium (1.8-2.4) mg/dL Total Bilirubin (0.2-1.0) mg/dL AST (15-37) IU/L ALT (14-63) IU/L Alkaline Phosphatase (46-116) U/L Troponin I (0.000-0.056) ng/mL Total Protein (6.4-8.2) g/dL Albumin (3.4-5.0) g/dL Globulin (2.0-3.5) g/dL Albumin/Globulin Ratio (1.3-2.8) TSH 3rd Generation (0.36-3.74) uIU/mL Urine Color YELLOW Urine Appearance CLEAR Urine pH 5.5 (5.0-8.0) Ur Specific [place] >= 1.030 (1.001-1.035) Urine Protein NEGATIVE (NEGATIVE) mg/dL Urine Glucose (UA) NEGATIVE (NEGATIVE) mg/dL Urine Ketones NEGATIVE (NEGATIVE) mg/dL Urine Occult Blood NEGATIVE (NEGATIVE) Urine Nitrite NEGATIVE (NEGATIVE) Urine Bilirubin NEGATIVE (NEGATIVE) Urine Urobilinogen 0.2 (<2.0) EU/dL Ur Leukocyte Esterase NEGATIVE (NEGATIVE) Urine RBC 0-1 (0-2/HPF) Urine WBC 0-1 (0-5/HPF) Ur Epithelial Cells RARE (NONE-FEW) Urine Bacteria RARE (NEGATIVE) Med Orders - Current: Current Medications Acetaminophen (Tylenol Extra Strength) 500 mg PO Q4H PRN PRN Reason: Pain (Mild 1-3)/fever Amiodarone HCl (Cordarone) 200 mg PO BID [facility] Last Admin: 05/11/18 09:23 Dose: 200 mg Aspirin (Aspirin) 650 mg PO DAILY [facility] Bisacodyl (Dulcolax) 5 mg PO DAILY PRN PRN Reason: Constipation Diltiazem HCl (Cardizem Cd) 360 mg PO DAILY [facility] Fish Oil (Fish Oil) 1 gm PO DAILY [facility] Last Admin: 05/11/18 09:21 Dose: 1 gm Omeprazole (Omeprazole) 20 mg PO DAILY [facility] Temazepam (Restoril) 15 mg PO BEDTIME PRN PRN Reason: Sleep Valsartan (Diovan) 80 mg PO DAILY [facility] Discontinued Medications Sodium Chloride (Normal Saline) 1,000 mls @ 999 mls/hr IV STAT ONE Stop: 05/10/18 22:30 Last Admin: 05/10/18 21:42 Dose: 999 mls/hr Potassium Chloride (Klor-Con M20) 40 meq PO ONETIME ONE Stop: 05/11/18 09:56 - Exam General: Alert, Oriented Neck: Supple, Trachea Midline Lungs: Clear to Auscultation, Normal Respiratory Effort Cardiovascular: Regular Rate, Regular Rhythm Psy/Mental Status: Alert Physical Findings Comments:: EKG: sinus rhythm with LVH and prolonged cQT interval of over .5 monitor: presently showing nsr but frequent PVC's earlier today with trigeminy and with one four beat run of v tach - Problem List & Annotations (1) Premature ventricular contractions SNOMED Code(s): 37048741 Code(s): I49.3 - VENTRICULAR PREMATURE DEPOLARIZATION Status: Acute Current Visit: Yes (2) Near syncope SNOMED Code(s): 888901912 Code(s): R55 - SYNCOPE AND COLLAPSE Status: Acute Current Visit: Yes - Problem List Review Problem List Initiated/Reviewed/Updated: Yes - My Orders Last 24 Hours: My Active Orders 05/10/18 22:00 Telemetry Monitoring [Cardiac Monitoring] [RC] . DIRECTED 05/10/18 22:28 Oxygen Therapy [RC] PRN VTE/DVT Education [RC] PER UNIT ROUTINE Vital Signs [RC] Q4H Consult to Physician [CONS] Routine Acetaminophen [Tylenol Extra Strength] 500 mg PO Q4H PRN Bisacodyl [Dulcolax] 5 mg PO DAILY PRN Temazepam [Restoril] 15 mg PO BEDTIME PRN Resuscitation Status Routine 05/10/18 22:31 Notify Provider Consults [RC] ASDIRECTED 05/11/18 09:00 Amiodarone [Cordarone] 200 mg PO BID Aspirin 650 mg PO DAILY Diltiazem [Cardizem CD] 360 mg PO DAILY Fish Oil/[place]-3 Fatty Acids [Fish Oil] 1 gm PO DAILY Omeprazole 20 mg PO DAILY Valsartan [Diovan] 80 mg PO DAILY 05/11/18 09:51 Echo 2D wo Cont [US] Urgent 05/12/18 05:11 BASIC METABOLIC PANEL,BMP [CHEM] AM - Plan Plan:: 05/10/2018 see orders will seek cardiology consult tomorrow telemetry echocardiogram Josiah Martinez MD 05/11/2018 Low K of 3.4 noted will give po replacement I spoke with office of Dr Dietz regarding consult request echo today possibly home later today if OK with Dr Dietz. Will consult pharmacy regarding any medicines that might prolong QT interval Josiah Martinez MD
--- NOTE | 2018-05-11 12:50 | CT ---
EXAM DATE: 05/10/18 PATIENT'S AGE: 37 Patient: DEMARCO TAMAYO Facility: [place], [place] Site . Site : 1980 Study: CT Head [id number]/20/2018 8:43:39 PM Ordering Physician: Dallin Murguia Final Report: INDICATION: Lightheaded, dizzy TECHNIQUE: CT head without contrast. COMPARISON: None FINDINGS: CSF spaces: Within normal limits for age. Brain parenchyma: The mathew-white differentiation is normal. No sign of mass, hemorrhage, or midline shift. Skull base and calvarium: The visualized paranasal sinuses and mastoid air cells demonstrate no acute or significant findings. The visualized orbits are grossly unremarkable. No skull fractures. IMPRESSION: Unremarkable noncontrast head CT. Please note that all CT scans at this facility use dose modulation, iterative reconstruction, and/or weight-based dosing when appropriate to reduce radiation dose to as low as reasonably achievable. Dictated by Qi Hall MD @ May 10 2018 9:00PM (Electronic Signature) Report Signed by Proxy. [facility] Luis
[2018-05-11 13:45] VITALS: BP 135/63
--- NOTE | 2018-05-11 16:04 | PCM.DCSUM1 ---
Discharge Summary - Hospital Course Free Text/Narrative:: He was admitted for presyncope. - Discharge Data Discharge Date: 05/11/18 Discharge Disposition: Home, Self-Care 01 Condition: Fair - Discharge Diagnosis/Problem(s) (1) Premature ventricular contractions SNOMED Code(s): 14038894 ICD Code: I49.3 - VENTRICULAR PREMATURE DEPOLARIZATION Status: Acute Current Visit: Yes (2) Near syncope SNOMED Code(s): 548752681 ICD Code: R55 - SYNCOPE AND COLLAPSE Status: Acute Current Visit: Yes - Patient Summary/Data Consults: Consultations 05/10/18 22:28 Consult to Physician [CONS] Routine Hospital Course: He was monitored on telemetry He had many PVCs and had trigeminy and one four beat run of ventricular tachycardia. His EKG showed sinus rhythm with LVH and with prolonged QT interval. He noted some feelings of dizziness with rapid head turning. Exam of TM's was normal I advised that we could give a therapeutic trial of meclizine at home. Dr Dias, cardiology , was consulted . He agreed with discharge home with follow up with cardiology in [place] as he already has follow up there arranged and prefers to go there. Impression: frequent ventricular ectopy symptoms of presyncope discharge home trial meclizine 25 mg q 6 hours prn Josiah Martinez MD - Discharge Plan Prescriptions/Med Rec: Meclizine [Antivert] 25 mg PO Q6H PRN #30 tab PRN Reason: Dizziness Home Medications: Home Meds Amiodarone [Cordarone] 200 mg PO DAILY 05/10/18 [History] LORazepam 0.5 - 1 mg PO BEDTIME 05/11/18 [History] Meclizine [Antivert] 25 mg PO Q6H PRN #30 tab 05/11/18 [Rx] Olmesartan/Hydrochlorothiazide [Olmesartan-Hctz 40-25 mg Tab] 1 each PO DAILY [History] RABEprazole Sodium [Rabeprazole Sodium] 40 mg PO DAILY 05/11/18 [History] Zolpidem Tartrate 10 mg PO BEDTIME PRN 05/11/18 [History] Forms: ED Department Discharge Referrals: PCP,None [Primary Care Provider] - - Patient Data Vitals - Most Recent: Last Vital Signs Temp 97.9 F 05/11/18 13:43 Pulse 56 L 05/11/18 13:43 Resp 18 05/11/18 13:43 BP 135/63 05/11/18 13:43 Pulse Ox 97 05/11/18 13:43 Orthostatic Blood Pressure [ 132/62 Supine] Orthostatic Blood Pressure [ 121/62 Sitting] Orthostatic Blood Pressure [ 129/57 Standing] Weight - Most Recent: 131.542 kg Lab Results - Last 24 hrs: Laboratory Results - last 24 hr 05/10/18 05/10/18 05/10/18 Range/Units 20:42 20:42 20:42 WBC 7.09 (4.0-11.0) K/uL RBC 5.20 (4.50-5.90) M/uL Hgb 14.6 (13.0-17.0) g/dL Hct 43.5 (38.0-50.0) % MCV 83.7 (80.0-98.0) fL MCH 28.1 (27.0-32.0) pg MCHC 33.6 (31.0-37.0) g/dL RDW Std Deviation 44.8 (28.0-62.0) fl RDW Coeff of Francisco 15 (11.0-15.0) % Plt Count 176 (150-400) K/uL MPV 10.90 (7.40-12.00) fL Neut % (Auto) 59.8 (48.0-80.0) % Lymph % (Auto) 23.6 (16.0-40.0) % [place] % (Auto) 7.8 (0.0-15.0) % Eos % (Auto) 8.5 H (0.0-7.0) % Baso % (Auto) 0.3 (0.0-1.5) % Neut # (Auto) 4.3 (1.4-5.7) K/uL Lymph # (Auto) 1.7 (0.6-2.4) K/uL [place] # (Auto) 0.6 (0.0-0.8) K/uL Eos # (Auto) 0.6 (0.0-0.7) K/uL Baso # (Auto) 0.0 (0.0-0.1) K/uL Nucleated RBC % 0.0 /100WBC Nucleated RBCs # 0 K/uL INR 1.04 Sodium 142 (136-148) mmol/L Potassium 3.4 L (3.5-5.1) mmol/L Chloride 107 (98-107) mmol/L Carbon Dioxide 25.1 (21.0-32.0) mmol/L BUN 27 H (7.0-18.0) mg/dL Creatinine 1.4 H (0.8-1.3) mg/dL Est Cr Clr Drug Dosing 77.75 mL/min Estimated GFR (MDRD) 56.4 ml/min Glucose 96 (74-106) mg/dL Calcium 8.6 (8.5-10.1) mg/dL Magnesium 2.2 (1.8-2.4) mg/dL Total Bilirubin 0.2 (0.2-1.0) mg/dL AST 15 (15-37) IU/L ALT 37 (14-63) IU/L Alkaline Phosphatase 93 (46-116) U/L Troponin I < 0.050 (0.000-0.056) ng/mL Total Protein 7.0 (6.4-8.2) g/dL Albumin 3.8 (3.4-5.0) g/dL Globulin 3.2 (2.0-3.5) g/dL Albumin/Globulin Ratio 1.2 L (1.3-2.8) TSH 3rd Generation 3.01 (0.36-3.74) uIU/mL Urine Color Urine Appearance Urine pH (5.0-8.0) Ur Specific [place] (1.001-1.035) Urine Protein (NEGATIVE) mg/dL Urine Glucose (UA) (NEGATIVE) mg/dL Urine Ketones (NEGATIVE) mg/dL Urine Occult Blood (NEGATIVE) Urine Nitrite (NEGATIVE) Urine Bilirubin (NEGATIVE) Urine Urobilinogen (<2.0) EU/dL Ur Leukocyte Esterase (NEGATIVE) Urine RBC (0-2/HPF) Urine WBC (0-5/HPF) Ur Epithelial Cells (NONE-FEW) Urine Bacteria (NEGATIVE) 05/10/18 Range/Units 21:40 WBC (4.0-11.0) K/uL RBC (4.50-5.90) M/uL Hgb (13.0-17.0) g/dL Hct (38.0-50.0) % MCV (80.0-98.0) fL MCH (27.0-32.0) pg MCHC (31.0-37.0) g/dL RDW Std Deviation (28.0-62.0) fl RDW Coeff of [place] (11.0-15.0) % Plt Count (150-400) K/uL MPV (7.40-12.00) fL Neut % (Auto) (48.0-80.0) % Lymph % (Auto) (16.0-40.0) % [place] % (Auto) (0.0-15.0) % Eos % (Auto) (0.0-7.0) % Baso % (Auto) (0.0-1.5) % Neut # (Auto) (1.4-5.7) K/uL Lymph # (Auto) (0.6-2.4) K/uL [place] # (Auto) (0.0-0.8) K/uL Eos # (Auto) (0.0-0.7) K/uL Baso # (Auto) (0.0-0.1) K/uL Nucleated RBC % /100WBC Nucleated RBCs # K/uL INR Sodium (136-148) mmol/L Potassium (3.5-5.1) mmol/L Chloride (98-107) mmol/L Carbon Dioxide (21.0-32.0) mmol/L BUN (7.0-18.0) mg/dL Creatinine (0.8-1.3) mg/dL Est Cr Clr Drug Dosing mL/min Estimated GFR (MDRD) ml/min Glucose (74-106) mg/dL Calcium (8.5-10.1) mg/dL Magnesium (1.8-2.4) mg/dL Total Bilirubin (0.2-1.0) mg/dL AST (15-37) IU/L ALT (14-63) IU/L Alkaline Phosphatase (46-116) U/L Troponin I (0.000-0.056) ng/mL Total Protein (6.4-8.2) g/dL Albumin (3.4-5.0) g/dL Globulin (2.0-3.5) g/dL Albumin/Globulin Ratio (1.3-2.8) TSH 3rd Generation (0.36-3.74) uIU/mL Urine Color YELLOW Urine Appearance CLEAR Urine pH 5.5 (5.0-8.0) Ur Specific [place] >= 1.030 (1.001-1.035) Urine Protein NEGATIVE (NEGATIVE) mg/dL Urine Glucose (UA) NEGATIVE (NEGATIVE) mg/dL Urine Ketones NEGATIVE (NEGATIVE) mg/dL Urine Occult Blood NEGATIVE (NEGATIVE) Urine Nitrite NEGATIVE (NEGATIVE) Urine Bilirubin NEGATIVE (NEGATIVE) Urine Urobilinogen 0.2 (<2.0) EU/dL Ur Leukocyte Esterase NEGATIVE (NEGATIVE) Urine RBC 0-1 (0-2/HPF) Urine WBC 0-1 (0-5/HPF) Ur Epithelial Cells RARE (NONE-FEW) Urine Bacteria RARE (NEGATIVE) Med Orders - Current: Current Medications Acetaminophen (Tylenol Extra Strength) 500 mg PO Q4H PRN PRN Reason: Pain (Mild 1-3)/fever Amiodarone HCl (Cordarone) 200 mg PO BID [facility] Last Admin: 05/11/18 09:23 Dose: 200 mg Aspirin (Aspirin) 650 mg PO DAILY [facility] Last Admin: 05/11/18 12:52 Dose: 650 mg Bisacodyl (Dulcolax) 5 mg PO DAILY PRN PRN Reason: Constipation Diltiazem HCl (Cardizem Cd) 360 mg PO DAILY [facility] Last Admin: 05/11/18 12:52 Dose: Not Given Fish Oil (Fish Oil) 1 gm PO DAILY [facility] Last Admin: 05/11/18 09:21 Dose: 1 gm Omeprazole (Omeprazole) 20 mg PO DAILY [facility] Last Admin: 05/11/18 12:52 Dose: Not Given Temazepam (Restoril) 15 mg PO BEDTIME PRN PRN Reason: Sleep Valsartan (Diovan) 80 mg PO DAILY [facility] Last Admin: 05/11/18 12:52 Dose: Not Given Discontinued Medications Sodium Chloride (Normal Saline) 1,000 mls @ 999 mls/hr IV STAT ONE Stop: 05/10/18 22:30 Last Admin: 05/10/18 21:42 Dose: 999 mls/hr Potassium Chloride (Klor-Con M20) 40 meq PO ONETIME ONE Stop: 05/11/18 09:56 Last Admin: 05/11/18 12:49 Dose: 40 meq
--- NOTE | 2018-05-14 08:28 | CONS ---
DATE OF CONSULTATION: 05/11/2018 DATE OF : 1980 PRIMARY CARE PHYSICIAN: None PCP REASON FOR CONSULTATION: Frequent PVCs. HISTORY OF PRESENT ILLNESS: This is a 36-year-old male with a history of paroxysmal atrial fibrillation diagnosed in 2004. At that time, he underwent direct current cardioversion, he converted to sinus rhythm. I saw him last time in last May 2017. At that time, he went in because of chest pain or palpitation and at that time, the ACS was ruled out. A troponin was negative. EKG shows sinus rhythm with unifocal frequent PVCs. He also had a history of hypertension, morbid obesity as well. He came back here to the hospital because of 2 days of feeling lightheaded. He stated that it is not dizziness, but is more lightheaded. He did not feel like the room spinning, but he feels like he was imbalanced. He stated that the day before, he was at [place] and then went to the hardware store. He started feeling dizzy and he started feeling lightheaded and then he went to the emergency room. However, he was recommended to be transferred to [place] for further evaluation due to the full bed. He declined to be transferred and to be admitted. He went home, his lightheadedness slightly better. The next day, it comes on again when he woke up in the morning and has got worse when he was at [facility]. He stated that it seemed to be worse when he turned his face up and turned from [id number] as well as standing up from sitting. It seemed to be on and off. He also stated that since I saw him last time, he saw the manager staffing in [place]. He has the stress test done as well as ultrasound done of the heart. He was then referred to see optical technician in [facility]. He had 3 ablations, the first one done in July 2017, the second one was done in October or November this year, and the last one was in January and all those 3 time of ablation does not seem to be successful and he still has the extra heartbeat feeling and he has tried anti-arrhythmic medications including propafenone as well as the flecainide as well as Sotalol and though the one that he is currently on right now is amiodarone, he started since January and he is on 200 mg now once a day. He stated that according to electrophysiologists in [place], he may need to be transferred to the other hospital for possible epicardial ablation for his PVCs because the location of the PVC is in the difficult anatomy and also one of his medication which is valsartan was on recall and he is on Benicar for his blood pressure instead, that was started like a month ago as well. He stated that even though he is on amiodarone, he did not feel any dizziness or any side effects from amiodarone even when he was loaded with a higher dose. He is still feeling the extra heartbeat, on and off almost every day. It does not feel like he has more episodes of palpitation, no extra heartbeat but the dizziness seemed to be new to him, he felt once before right after the first ablation back in July, but it has gone by itself. When he came in here, they checked the orthostatic vital signs and turned out to be negative. So in supine position, the blood pressure was 132/62, heart rate of 72 and then in the sitting position is 121/62 over 71, and then the standing position is 129/57, heart rate of 76, but he stated that he feels that the lightheadedness is getting worse when he is standing up, even though there is no dropping his blood pressure or raising his heart rate as well. When he was in the hospital until now, his troponin was checked one time, it was negative. TSH was also normal. He only has low potassium like 3.4, otherwise his creatinine is also slightly high at 1.4 compared to the previous numbers, but other than that his labs seemed to be unremarkable. His telemetry, he still has a frequent PVCs. His current medication including amiodarone 200 mg once a day and Benicar 40/25 one time a day as well as Rabeprazole 20 mg once a day. Ativan also as well. He also mentioned that after he was admitted to the hospital last May, he had a stress test done in [place] and he was told everything is normal. There was no blockage and when he went to [place], they repeated an echocardiogram as well. They tried to do the cardiac MR, however, he could not go to the tunnel, but they apparently did the CT scan of the heart. He denies chest pain. No leg swelling. He may have the diagnosis of sleep apnea. He tried the in house sleep study, however, he could not sleep. 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 FAMILY HISTORY: Noncontributory. SOCIAL HISTORY: He was former smoker, 1 pack per day for 20 years. Very occasional alcohol consumption right now. No recreational drugs. ALLERGIES: No known drug allergies. PHYSICAL EXAMINATION: VITAL SIGNS: Orthostatic vital signs have been negative. However, he got more lightheaded when he is standing up. The initial blood pressure was 137/63. The current blood pressure when I talked to him today is 120/74, heart rate is ranging between 57 to 80s, temperature 36.4, O2 saturation is 97% on room air, respirations 18. HEENT: Not pale. No jaundice. HEART: Normal S1, S2. Irregular rate and rhythm. LUNGS: Clear. No crackles. No wheezing. ABDOMEN: Soft, nontender. Bowel sounds are present. No hepatosplenomegaly. No rebound tenderness. No guarding. LEGS: No edema. INVESTIGATIONS: EKG on 05/09/2018, shows sinus rhythm with PVCs, heart rate of 75, QRS duration 104, QTc 452. EKG on May 10; heart rate of 67, LA interval 167, QRS duration 106, QTc noted to be 514. The echocardiogram is pending. CBC showed WBC 7, hematocrit of 14, hemoglobin of 43, platelet 176. Sodium 142, potassium 3.4, chloride 107, bicarb 25, BUN 27, and creatinine 1.4. Troponin is less than 0.05. Albumin 1.4. TSH is 3.01. ASSESSMENT AND PLAN: This is a 36-year-old male history of hypertension, history of paroxysmal atrial fibrillation in the past with frequent PVCs status post unsuccessful PVC ablation x3, last time in January, presented to the hospital with lightheadedness. He still has ongoing PVC and he feels an extra heart beat. He did not feel any increasing in number of extra heartbeat and I feel that his lightheadedness is positional related. He should be seen by the ENT doctor to see if he has an inner ear disease and this could be the vertigo. He also stated that his lightheaded seemed to be worse when he is standing. In fact, PVC seemed to be about the same and I would not change his medication for now. Continue the same dose of amiodarone along with his blood pressure medication. The echocardiogram still pending. He will follow up with his own manager staffing in [place] as well as his EP manager staffing as well. It might be possible that he will be referred to the other hospital for possible epicardial ablation for his PVCs. Other than that, from my standpoint, he can be discharged home and follow up his own manager staffing. TEENA PRESTON /[id number]
== END 2018-05-11 16:05 | disposition home or self-care (01) ==
LOC: MW.ED 19:55 → MW.OB 21:30
PROVIDERS: ADMIT Family Medicine; ATTEND Family Medicine
DX: I49.3 Ventricular premature depolarization (principal); I10 Essential (primary) hypertension; I48.0 Paroxysmal atrial fibrillation; E66.01 Morbid (severe) obesity due to excess calories; Z68.39 Body mass index [BMI] 39.0-39.9, adult; Z79.82 Long term (current) use of aspirin; Z79.899 Other long term (current) drug therapy; Z87.891 Personal history of nicotine dependence
CPT/HCPCS: 36415; 70450; 80053; 81001; 83735; 84443; 84484; 85025; 85610; 93005; 99285; A9270; G0378; J7040; 99284

== ENCOUNTER 2018-05-24 19:43 | Emergency (ER) | payer BC ==
[2018-05-24] MEDS ORDERED: Sodium Chloride 0.9% 1,000 ML IV ONE (20:22)
[2018-05-24] MEDS ORDERED: Ondansetron 4 MG/2 ML SDV IVPUSH ONE (20:59)
--- NOTE | 2018-05-24 20:59 | EDM.PDOC ---
<Ricardo Buck - Last Filed: 05/24/18 22:55> ED HPI GENERAL MEDICAL PROBLEM - General Chief Complaint: General Stated Complaint: LIGHT HEADED, FEELS LIKE HE COULD PASS OUT,NAUSIA Time Seen by Provider: 05/24/18 19:58 Source of Information: Reports: Patient History Limitations: Reports: No Limitations - History of Present Illness INITIAL COMMENTS - FREE TEXT/NARRATIVE: Dr. Buck taking over patient care at 2200 hrs. I've been thoroughly briefed on this patient and have reviewed all labs and pertinent radiologic findings. I personally examined the patient and agree with the above. CT of the head was unremarkable. In further discussion with the patient he did state that the majority of his symptoms started when he started remodeling his kitchen. He has had some associated shortness of breath with dizziness. I suggested that he follow-up with his primary care provider as pulmonary function testing may be appropriate. In addition I did give the patient a Ventolin inhaler to see if that helps with any of his shortness of breath when these episodes occur. Did talk to him at length to continue following up with coding educator as well as his primary care provider and program coordinator for residence life. He was discharged in good condition with Ventolin inhaler and instructed to return to emergency department if any new or worsening symptoms. - Related Data Allergies Allergy/AdvReac Type Severity Reaction Status Date / Time No Known Allergies Allergy Verified 05/24/18 20:33 Home Meds: Home Meds Amiodarone [Cordarone] 200 mg PO DAILY 05/10/18 [History] LORazepam 0.5 - 1 mg PO BEDTIME 05/11/18 [History] Meclizine [Antivert] 25 mg PO Q6H PRN #30 tab 05/11/18 [Rx] Olmesartan/Hydrochlorothiazide [Olmesartan-Hctz 40-25 mg Tab] 1 each PO DAILY [History] RABEprazole Sodium [Rabeprazole Sodium] 40 mg PO DAILY 05/11/18 [History] Zolpidem Tartrate 10 mg PO BEDTIME PRN 05/11/18 [History] ED ROS GENERAL - Review of Systems Review Of Systems: ROS reveals no pertinent complaints other than HPI. ED EXAM, GENERAL - Physical Exam Exam: See Below Course - Vital Signs Last Recorded V/S: Last Vital Signs Temp 98 F 10/04/18 23:01 Pulse 59 L 05/24/18 23:01 Resp 18 05/24/18 23:01 BP 131/88 05/24/18 23:01 Pulse Ox 97 05/24/18 23:01 Orthostatic Blood Pressure [ 143/65 Standing] Orthostatic Blood Pressure [ 123/71 Sitting] Orthostatic Blood Pressure [ 139/69 Supine] - Orders/Labs/Meds Labs: Laboratory Tests 05/24/18 05/24/18 05/24/18 Range/Units 20:35 20:35 20:47 WBC 7.84 (4.0-11.0) K/uL RBC 5.13 (4.50-5.90) M/uL Hgb 14.6 (13.0-17.0) g/dL Hct 42.9 (38.0-50.0) % MCV 83.6 (80.0-98.0) fL MCH 28.5 (27.0-32.0) pg MCHC 34.0 (31.0-37.0) g/dL RDW Std Deviation 44.3 (28.0-62.0) fl RDW Coeff of Francisco 15 (11.0-15.0) % Plt Count 174 (150-400) K/uL MPV 10.80 (7.40-12.00) fL Neut % (Auto) 62.6 (48.0-80.0) % Lymph % (Auto) 20.9 (16.0-40.0) % [place] % (Auto) 7.8 (0.0-15.0) % Eos % (Auto) 8.4 H (0.0-7.0) % Baso % (Auto) 0.3 (0.0-1.5) % Neut # (Auto) 4.9 (1.4-5.7) K/uL Lymph # (Auto) 1.6 (0.6-2.4) K/uL [place] # (Auto) 0.6 (0.0-0.8) K/uL Eos # (Auto) 0.7 (0.0-0.7) K/uL Baso # (Auto) 0.0 (0.0-0.1) K/uL Nucleated RBC % 0.0 /100WBC Nucleated RBCs # 0 K/uL Sodium 140 (136-148) mmol/L Potassium 3.4 L (3.5-5.1) mmol/L Chloride 103 (98-107) mmol/L Carbon Dioxide 27.5 (21.0-32.0) mmol/L BUN 29 H (7.0-18.0) mg/dL Creatinine 1.1 (0.8-1.3) mg/dL Est Cr Clr Drug Dosing TNP Estimated GFR (MDRD) > 60.0 ml/min Glucose 93 (74-106) mg/dL Calcium 9.2 (8.5-10.1) mg/dL Total Bilirubin 0.4 (0.2-1.0) mg/dL AST 22 (15-37) IU/L ALT 40 (14-63) IU/L Alkaline Phosphatase 83 (46-116) U/L Troponin I < 0.050 (0.000-0.056) ng/mL Total Protein 7.5 (6.4-8.2) g/dL Albumin 4.3 (3.4-5.0) g/dL Globulin 3.2 (2.0-3.5) g/dL Albumin/Globulin Ratio 1.3 (1.3-2.8) TSH 3rd Generation 2.29 (0.36-3.74) uIU/mL Urine Color Urine Appearance Urine pH (5.0-8.0) Ur Specific [place] (1.001-1.035) Urine Protein (NEGATIVE) mg/dL Urine Glucose (UA) (NEGATIVE) mg/dL Urine Ketones (NEGATIVE) mg/dL Urine Occult Blood (NEGATIVE) Urine Nitrite (NEGATIVE) Urine Bilirubin (NEGATIVE) Urine Urobilinogen (<2.0) EU/dL Ur Leukocyte Esterase (NEGATIVE) Urine RBC (0-2/HPF) Urine WBC (0-5/HPF) Ur Epithelial Cells (NONE-FEW) Urine Bacteria (NEGATIVE) Urine Mucus (NONE-MOD) Urine Opiates Screen (NEGATIVE) Ur Oxycodone Screen (NEGATIVE) Urine Methadone Screen (NEGATIVE) Ur Barbiturates Screen (NEGATIVE) Ur Phencyclidine Scrn (NEGATIVE) Ur Amphetamine Screen (NEGATIVE) U Methamphetamines Scrn (NEGATIVE) U Benzodiazepines Scrn (NEGATIVE) U Cocaine Metab Screen (NEGATIVE) U Marijuana (THC) Screen (NEGATIVE) 05/24/18 05/24/18 Range/Units 21:15 21:15 WBC (4.0-11.0) K/uL RBC (4.50-5.90) M/uL Hgb (13.0-17.0) g/dL Hct (38.0-50.0) % MCV (80.0-98.0) fL MCH (27.0-32.0) pg MCHC (31.0-37.0) g/dL RDW Std Deviation (28.0-62.0) fl RDW Coeff of Francisco (11.0-15.0) % Plt Count (150-400) K/uL MPV (7.40-12.00) fL Neut % (Auto) (48.0-80.0) % Lymph % (Auto) (16.0-40.0) % Bourbon % (Auto) (0.0-15.0) % Eos % (Auto) (0.0-7.0) % Baso % (Auto) (0.0-1.5) % Neut # (Auto) (1.4-5.7) K/uL Lymph # (Auto) (0.6-2.4) K/uL [place] # (Auto) (0.0-0.8) K/uL Eos # (Auto) (0.0-0.7) K/uL Baso # (Auto) (0.0-0.1) K/uL Nucleated RBC % /100WBC Nucleated RBCs # K/uL Sodium (136-148) mmol/L Potassium (3.5-5.1) mmol/L Chloride (98-107) mmol/L Carbon Dioxide (21.0-32.0) mmol/L BUN (7.0-18.0) mg/dL Creatinine (0.8-1.3) mg/dL Est Cr Clr Drug Dosing Estimated GFR (MDRD) ml/min Glucose (74-106) mg/dL Calcium (8.5-10.1) mg/dL Total Bilirubin (0.2-1.0) mg/dL AST (15-37) IU/L ALT (14-63) IU/L Alkaline Phosphatase (46-116) U/L Troponin I (0.000-0.056) ng/mL Total Protein (6.4-8.2) g/dL Albumin (3.4-5.0) g/dL Globulin (2.0-3.5) g/dL Albumin/Globulin Ratio (1.3-2.8) TSH 3rd Generation (0.36-3.74) uIU/mL Urine Color YELLOW Urine Appearance CLEAR Urine pH 5.5 (5.0-8.0) Ur Specific [place] 1.025 (1.001-1.035) Urine Protein NEGATIVE (NEGATIVE) mg/dL Urine Glucose (UA) NEGATIVE (NEGATIVE) mg/dL Urine Ketones NEGATIVE (NEGATIVE) mg/dL Urine Occult Blood NEGATIVE (NEGATIVE) Urine Nitrite NEGATIVE (NEGATIVE) Urine Bilirubin NEGATIVE (NEGATIVE) Urine Urobilinogen 0.2 (<2.0) EU/dL Ur Leukocyte Esterase NEGATIVE (NEGATIVE) Urine RBC 0-1 (0-2/HPF) Urine WBC 0-1 (0-5/HPF) Ur Epithelial Cells RARE (NONE-FEW) Urine Bacteria RARE (NEGATIVE) Urine Mucus LIGHT (NONE-MOD) Urine Opiates Screen NEGATIVE (NEGATIVE) Ur Oxycodone Screen NEGATIVE (NEGATIVE) Urine Methadone Screen NEGATIVE (NEGATIVE) Ur Barbiturates Screen NEGATIVE (NEGATIVE) Ur Phencyclidine Scrn NEGATIVE (NEGATIVE) Ur Amphetamine Screen NEGATIVE (NEGATIVE) U Methamphetamines Scrn NEGATIVE (NEGATIVE) U Benzodiazepines Scrn NEGATIVE (NEGATIVE) U Cocaine Metab Screen NEGATIVE (NEGATIVE) U Marijuana (THC) Screen NEGATIVE (NEGATIVE) Meds: Medications Discontinued Medications Generic Name Dose Route Start Last Admin Trade Name Freq PRN Reason Stop Dose Admin Albuterol 8 gm 05/24/18 22:53 05/25/18 01:17 Proventil Hfa INH 05/24/18 22:54 Not Given ONETIME ONE Albuterol 2 gm 05/24/18 23:11 05/24/18 23:12 Ventolin Hfa INH 1 puff Q6H PRN Administration Shortness of Breath Albuterol Confirm 05/24/18 23:08 05/25/18 01:16 Ventolin Hfa Administered 05/24/18 23:09 Not Given Dose 8 gm INH .STK-MED ONE Sodium Chloride 1,000 mls @ 999 mls/hr 05/24/18 20:22 05/24/18 20:48 Normal Saline IV 05/24/18 21:22 999 mls/hr STAT ONE Administration Ondansetron HCl 4 mg 05/24/18 20:59 05/24/18 21:17 Zofran IVPUSH 05/24/18 21:00 Not Given ONETIME ONE Departure - Departure Time of Disposition: 22:57 Disposition: Home, Self-Care 01 Condition: Good Clinical Impression: Dizziness, Light-headed feeling - Discharge Information Instructions: Dizziness, [id number] Referrals: PCP,None [Primary Care Provider] - Forms: ED Department Discharge Additional Instructions: My general discharge The following information is given to patients seen in the emergency department who are being discharged to home. This information is to outline your options for follow-up care. We provide all patients seen in our emergency department with a follow-up referral. The need for follow-up, as well as the timing and circumstances, are variable depending upon the specifics of your emergency department visit. If you don't have a primary care physician on staff, we will provide you with a referral. We always advise you to contact your personal physician following an emergency department visit to inform them of the circumstance of the visit and for follow-up with them and/or the need for any referrals to a consulting specialist. The emergency department will also refer you to a specialist when appropriate. This referral assures that you have the opportunity for follow-up care with a specialist. All of these measure are taken in an effort to provide you with optimal care, which includes your follow-up. Under all circumstances we always encourage you to contact your private physician who remains a resource for coordinating your care. When calling for follow-up care, please make the office aware that this follow-up is from your recent emergency room visit. If for any reason you are refused follow-up, please contact the [facility] Emergency Department at and asked to speak to the emergency department charge nurse. [address] [address] Please call and follow-up with your primary care provider Dr. Vazquez tomorrow. Be sure to tell them that you were seen in the emergency department and they wish for you to be seen as soon as possible. You may benefit from pulmonary function testing as we discussed. I would limit your time in the area where you have been remodeling the kitchen as this may be partially to blame for your dizziness, lightheadedness, and shortness of breath. Return emergency department if any new or worsening symptoms. <Tia Read E - Last Filed: 05/28/18 10:41> ED HPI GENERAL MEDICAL PROBLEM - General Source of Information: Reports: Patient History Limitations: Reports: No Limitations - History of Present Illness INITIAL COMMENTS - FREE TEXT/NARRATIVE: HISTORY AND PHYSICAL: History of present illness: Patient is a 37-year-old male who presents to the emergency room today with complaints of dizziness, nausea and feeling of near syncope. He states that this has been intermittent but ongoing over the past 2 weeks. He describes the episodes of lightheadedness or like a near syncopal event. He states that there is no spinning sensation. It does not get better or worse with movement, position changes or rest. He denies any numbness or tingling associated with this. Does have an associated mild headache and nausea. He denies any fever, chills, chest pain, shortness of breath or cough. Denies any abdominal pain, vomiting, diarrhea, constipation or dysuria. Former smoker. Rarely uses alcohol and caffeinated beverages. Denies any drug abuse. He was admitted to our hospital on 05/10/2018 for these symptoms. He states that he had a full workup which did not "give me any answers". During this time he had a head CT (negative), labs (WNL), and cardiology consult with Dr. Kim. Dr. Kim recommended that he follow up with ear nose and throat as he may have in her ear disease and this could be vertigo. He would not change his medications at this time as PVCs seemed to be a bout the same. He recommended that the patient follow up with his own program coordinator for residence life, and was discharged from his care. Patient states that he is frustrated as the symptoms have not resolved. Past medical history of hypertension, atrial fibrillation and PVCs. He does have a program coordinator for residence life in [place] had multiple ablations in the past. Has seen a program coordinator for residence life at [facility] for care as well. Review of systems: As per history of present illness and below otherwise all systems reviewed and negative. Past medical history: As per history of present illness and as reviewed below otherwise noncontributory. Surgical history: As per history of present illness and as reviewed below otherwise noncontributory. Social history: No reported history of drug or alcohol abuse. Family history: As per history of present illness and as reviewed below otherwise noncontributory. Physical exam: General: Well-developed and well-nourished 37-year-old male. Alert and oriented. Nontoxic appearing and in no acute distress. HEENT: Atraumatic, normocephalic, pupils equal and reactive bilaterally, negative for conjunctival pallor or scleral icterus, mucous membranes moist, throat clear, neck supple, nontender, trachea midline. No drooling or trismus noted. No meningeal signs Lungs: Clear to auscultation, breath sounds equal bilaterally, chest nontender. Heart: S1S2, regular rate and rhythm without overt murmur Abdomen: Soft, nondistended, nontender. Negative for masses or hepatosplenomegaly. Negative for costovertebral tenderness. Pelvis: Stable nontender. Genitourinary: Deferred. Rectal: Deferred. Skin: Intact, warm, dry. No lesions or rashes noted. Extremities: Atraumatic, negative for cords or calf pain. Neurovascular unremarkable. Neuro: Awake, alert, oriented. Cranial nerves II through XII unremarkable. Cerebellum unremarkable. Motor and sensory unremarkable throughout. Exam nonfocal. Notes: Ortho static vital signs are unremarkable, although he does state that he gets "head hernadez" with position changes. Sinus rhythm with a rate of 67. Chest x-ray and lab results are unremarkable. This information was shared with the patient. Head CT results pending. Dr Buck has agreed to look at this patient and assume care 2200. Diagnostics: CBC, CMP, UA, urine drug screen, EKG, troponin, one view chest Therapeutics: IV fluid, Zofran (declined) Definitive disposition and diagnosis as appropriate pending reevaluation and review of above. head Pain Score (Numeric/FACES): 1 Past Medical History - Past Health History Medical/Surgical History: Denies Medical/Surgical History HEENT History: Reports: None Cardiovascular History: Reports: Afib, Hypertension, Other (See Below) Other Cardiovascular History: PVC Respiratory History: Reports: None Gastrointestinal History: Reports: GERD Genitourinary History: Reports: None Musculoskeletal History: Reports: None Neurological History: Reports: None Psychiatric History: Reports: Depression, Suicide Attempt, Suicidal Ideation Endocrine/Metabolic History: Reports: Other (See Below) Other Endocrine/Metabolic History: pre-diabetes Hematologic History: Reports: None Oncologic (Cancer) History: Reports: None Dermatologic History: Reports: None - Infectious Disease History Infectious Disease History: Reports: Chicken Pox - Past Surgical History Cardiovascular Surgical History: Reports: Cardiac Ablation, Other (See Below) Other Cardiovascular Surgeries/Procedures: x3 ablasions Other Musculoskeletal Surgeries/Procedures:: Carpal tunnel surgery Social & Family History - Family History Family Medical History: Noncontributory - Tobacco Use Smoking Status *Q: Never Smoker - Caffeine Use Caffeine Use: Reports: Coffee Caffeine Use Comment: Coffee use not daily - Recreational Drug Use Recreational Drug Use: No ED ROS GENERAL - Review of Systems Review Of Systems: ROS reveals no pertinent complaints other than HPI. ED EXAM, GENERAL - Physical Exam Exam: See Below (SEe dictation)
[2018-05-24 21:11] LABS: CHLORIDE,CL 103 mmol/L (98-107); SODIUM,NA 140 mmol/L (136-148)
[2018-05-24] MEDS ORDERED: Albuterol 6.7 GM Inhaler INH ONE (22:53)
[2018-05-24 23:02] VITALS: BP 131/88
[2018-05-24] MEDS ORDERED: Albuterol 8 GM Inhaler INH ONE (23:08)
[2018-05-24] MEDS ORDERED: Albuterol 8 GM Inhaler INH PRN (23:11)
--- NOTE | 2018-05-25 13:09 | CR ---
EXAM DATE: 05/24/18 PATIENT'S AGE: 37 Patient: DEMARCO TAMAYO Facility: [place], [place] Site . Site : 1980 Study: XRay Chest [id number] 8:45:23 PM Ordering Physician: Doctor Damian Final Report: INDICATION: dizziness, sob TECHNIQUE: Chest 1 view. COMPARISON: 05/09/18 FINDINGS: Cardiovascular and mediastinum: Heart size and vasculature are normal in caliber and appearance. Mediastinum is within normal limits. Lungs and pleural space: Lungs are clear. No sign of infiltrate or mass. No sign of pleural effusion. No pneumothorax. Bones and soft tissues: No significant findings. IMPRESSION: Unremarkable chest. Dictated by: Oliver Laureano MD @ 05/24/2018 20:51:18 (Electronic Signature) Report Signed by Proxy. [facility] Luis
--- NOTE | 2018-05-25 13:10 | CT ---
EXAM DATE: 05/24/18 PATIENT'S AGE: 37 Patient: DEMARCO TAMAYO Facility: [place], [place] Site . Site : 1980 Study: CT Head -05/24/2018 10:04:46 PM Ordering Physician: Heber Silva Final Report: INDICATION: Dizziness. TECHNIQUE: CT Head without i.v. contrast. CONTRAST: None COMPARISON: 05/10/18 FINDINGS: CSF space: The ventricles are normal for age. Brain: No evidence of mass, acute infarction or hemorrhage is seen. No mass- effect or midline shift is seen. The brain parenchyma is otherwise normal in appearance with preservation of the mathew-white matter junction. Calvarium: The visualized paranasal sinuses are well aerated. The mastoid air cells are clear. The visualized orbits are grossly unremarkable. The calvarium is unremarkable in appearance with no fractures identified. IMPRESSION: 1. No evidence of acute infarction, intracranial hemorrhage, or mass-effect seen. Please note that all CT scans at this facility use dose modulation, iterative reconstruction, and/or weight-based dosing when appropriate to reduce radiation dose to as low as reasonably achievable. Dictated by: Shin Davis MD @ 05/24/2018 22:07:48 (Electronic Signature) Report Signed by Proxy. DONNA
== END 2018-05-24 23:16 | disposition home or self-care (01) ==
LOC: MW.ED 19:43
DX: R42 Dizziness and giddiness (principal); I48.91 Unspecified atrial fibrillation; I10 Essential (primary) hypertension; Z79.899 Other long term (current) drug therapy
CPT/HCPCS: 36415; 70450; 71045; 80053; 80305; 81001; 84443; 84484; 85025; 93005; 96360; 99285; A9270; J7040; 99283

== ENCOUNTER 2021-10-20 17:39 | Emergency (ER) | payer BC ==
[2021-10-20] MEDS ORDERED: Diphtheria,Pertussis(Acell),Tetanus Vaccine 0.5 ML Syringe IM ONE (18:01)
[2021-10-20] MEDS ORDERED: Acetaminophen 500 MG Tab PO ONE (19:28)
[2021-10-20 20:00] VITALS: BP 152/79; PULSE 79
== END 2021-10-20 20:00 | disposition still patient (30) ==
LOC: MW.ED 17:39
DX: S01.01XA Laceration without foreign body of scalp, initial encounter (principal); I48.91 Unspecified atrial fibrillation; I10 Essential (primary) hypertension; K21.9 Gastro-esophageal reflux disease without esophagitis; Z23 Encounter for immunization; Z79.899 Other long term (current) drug therapy; W22.8XXA Striking against or struck by other objects, initial encounter
CPT/HCPCS: 12002; 70450; 72125; 90471; 90715; 99283; A9270

== ENCOUNTER 2022-08-15 17:03 | Emergency (ER) | payer BC | END 2022-08-15 20:40 | disposition left against medical advice (07) | LOC: MW.ED 17:03 | DX: Z53.21 Procedure and treatment not carried out due to patient leaving prior to being seen by health care provider (principal) ==

== ENCOUNTER 2022-09-11 07:37 | Emergency (ER) | payer BC ==
[2022-09-11] MEDS ORDERED: Tetracaine HCl/PF 0.5% 4 ML Bottle EYEBOTH ONE (07:44)
[2022-09-11] MEDS ORDERED: Erythromycin Base 0.5% Ophth Oint 1 GM Tube EYERT ONE (08:11)
[2022-09-11 08:28] VITALS: BP 130/76; PULSE 76
== END 2022-09-11 08:30 | disposition home or self-care (01) ==
LOC: MW.ED 07:37
DX: H01.001 Unspecified blepharitis right upper eyelid (principal); K21.9 Gastro-esophageal reflux disease without esophagitis; F32.9 Major depressive disorder, single episode, unspecified; I10 Essential (primary) hypertension; I48.91 Unspecified atrial fibrillation; F17.210 Nicotine dependence, cigarettes, uncomplicated; Z79.899 Other long term (current) drug therapy
CPT/HCPCS: 99283; A9270

== ENCOUNTER 2023-12-31 20:16 | Emergency (ER) | payer OTHER ==
[2023-12-31] MEDS: Cyclobenzaprine 10 MG Tab PO ONE (22:32)
[2023-12-31] MEDS: oxyCODONE 5 MG Tab PO ONE (22:32)
[2024-01-01 02:09] VITALS: BP 147/86; PULSE 80
== END 2023-12-31 22:40 | disposition home or self-care (01) ==
LOC: MW.ED 20:16
DX: S79.921A Unspecified injury of right thigh, initial encounter (principal); Z75.8 Other problems related to medical facilities and other health care; Z79.82 Long term (current) use of aspirin; Z79.899 Other long term (current) drug therapy; X58.XXXA Exposure to other specified factors, initial encounter
CPT/HCPCS: 99283; A9270